=== PATIENT | female | born 1990 | race Caucasian/White ===

== ENCOUNTER 2022-07-24 10:04 | Emergency (ER) | payer MEDICAID, OTHER, SELFPAY ==
[2022-07-24 10:12] VITALS: BP 136/88; PULSE 83; RESP 18; TEMP 36.8; O2SAT 100; BMI 18.7
--- NOTE | 2022-07-24 10:17 | ED_ITS ---
HPI - Wound/Laceration General Chief Complaint: Wound/Laceration Stated Complaint: Finger lac Time Seen by Provider: 07/24/22 10:15 Source: patient, RN notes reviewed and old records reviewed Mode of arrival: ambulatory History of Present Illness HPI narrative: 31-year-old female with no significant past medical history presenting to the ED for wound check to right thumb s/p cutting on oven wheat cleaner 1 week ago. Admits used topical antibiotic ointment a few days after incident, however has been having persistent/worsening pain. Admits to mild expressible drainage this morning. Tetanus out of date. Denies fever, chills, numbness/tingling, injury to other area Onset (ago): week(s) Related Data Previous Rx's Medication Instructions Recorded cephalexin 500 mg capsule 500 mg PO QID 7 days #28 caps 07/24/22 Allergies Allergy/AdvReac Type Severity Reaction Status Date / Time alcohol Allergy Unknown Verified 07/24/22 10:14 Review of Systems Review of Systems: Constitutional: No Fever, No Chills ENT/Mouth: No Ear Pain, No Nasal Congestion, No sore throat, No Rhinorrhea, No Swallowing Difficulty Cardiovascular: No Chest Pain, No SOB Respiratory: No Cough, No Sputum, No Wheezing Musculoskeletal: No joint pain, No Myalgias, + Joint Swelling Skin: + Skin Lesions, No rash Neuro: No Weakness, No Numbness, No Paresthesias Yes all other systems are reviewed and are negative Constitutional: Constitutional: Reports as per [facility] Past Medical History Attestation statement: The following information was validated with the patient. Source: old records reviewed Physical Exam Vital Signs: Vital Signs: Last Vital Signs Temp 98.3 F 07/24/22 10:12 Pulse 83 07/24/22 10:12 Resp 18 07/24/22 10:12 BP 136/88 07/24/22 10:12 Pulse Ox 100 07/24/22 10:12 O2 Del Method Room Air 07/24/22 10:12 BMI result Body Mass Index 18.7 Const: General: cooperative, healthy appearing and no acute distress Orientation/consciousness: patient oriented x3 Limitations: no limitations HEENT: Head: Yes normal to inspection and Yes atraumatic Ears: hearing grossly normal bilaterally General nose exam: Normal external nose present Face and sinus: Yes normal facial exam Eyes: General: appearance normal, both eyes and all related structures EOM: EOMs intact bilaterally Neck: Neck: Yes normal visual inspection and Yes no meningeal signs Resp: Effort & Inspection: normal respiratory effort and no respiratory distress Cardio: Rate: regular rate Peripheral pulses: radial pulses present and ulnar radial pulses present Skin: Other: Healing superficial laceration noted to distal right 1st digit palmar aspect. Mild swelling. No erythema/warmth. No fluctuance/induration or expressible drainage. Full range of motion intact. Neurovascular intact Rashes: no rashes Neuro: General: patient oriented x3, tone normal and no meningeal signs Gait exam (Neuro): Normal gait present Extrem: General: Yes normal to inspection Medical Decision Making Medical Decision Making MDM Narrative: 31-year-old female with no significant past medical history presenting to the ED for wound check to right thumb s/p cutting on oven wheat cleaner 1 week ago. On exam vital signs stable, NAD, nontoxic appearing, physical exam as noted above with appropriately healing laceration to right thumb with mild swelling. No surrounding cellulitis, no fluctuance/induration or expressible drainage. Low suspicion for septic joint/arthritis or underlying abscess/felon Plan: PO Keflex, PCP follow-up Results discussed with patient including worrisome signs and symptoms and strict return precautions, and when to return to the emergency department. They verbalized understanding and feel safe for discharge at this time. Differential Diagnosis Differential Diagnoses: The differential diagnosis associated with the presentation includes As above External Record Review External record reviewed: Inpatient record, Office record, Outpatient record, Prior outpatient labs, Prior outpatient radiology, Primary care record and Outside ED record Tests considered The following testing was considered but not selected: As above Discharge Plan Discharge Clinical Impression: Visit for wound check Patient Disposition: Home, Self-Care Instructions: Finger Laceration (ED) Additional Instructions: Keflex is an oral antibiotic please take as prescribed. The antibiotic was sent to [facility] at [address] [facility] You may apply topical antibiotic cream like bacitracin or Neosporin If area begins to look red, has pus drainage, you have fever return to the ED Kefleks ? peroral'nyy antibiotik, prinimayte yego elvira patelachemiranda. Antibiotik byl arnie felix adresu [address] [facility]. Ivy soria s antibiotikom, comfort gonzalez batsitratsin tom neosporin. Yesli oblast' nachinayet vyglyadet' raffynoraissa quiñones, u vas likhoradka, horaciozvrsuleiman' v otdeleniye neotlozhnrebecca camacho. Prescriptions: New cephalexin 500 mg capsule 500 mg PO QID 7 Days Qty: 28 0RF Referrals: Physician,Unknown J [Primary Care Provider] -
[2022-07-24] MEDS: Diphth,Pertus(ACell),Tet Adult 0.5 ML SYRINGE IM (10:51)
== END 2022-07-24 11:11 | disposition home or self-care (01) ==
PROVIDERS: Emergency Provider Internal Medicine
DX: S61.011A Laceration without foreign body of right thumb without damage to nail, initial encounter (principal); S60.311A Abrasion of right thumb, initial encounter; W26.9XXA Contact with unspecified sharp object(s), initial encounter; Y93.9 Activity, unspecified; Y92.009 Unspecified place in unspecified non-institutional (private) residence as the place of occurrence of the external cause; Y99.9 Unspecified external cause status; Z23 Encounter for immunization
CPT/HCPCS: 90471; 90715; 99283; 99284

== ENCOUNTER 2022-07-29 07:59 | Emergency (ER) | payer MEDICAID, OTHER, SELFPAY ==
--- NOTE | ~2022-07-29 | XR_ITS ---
EXAMINATION: XR FINGER, RIGHT CLINICAL INFORMATION: Evaluate for foreign body COMPARISON: None available. TECHNIQUE: Three views views of the right finger including single view of right hand. FINDINGS: The bones and soft tissues are normal. No fracture. Alignment is anatomic. Joint spaces are maintained. XR/XR finger RT min 2V IMPRESSION: Normal finger radiographs. No foreign bodies identified
[2022-07-29 08:16] VITALS: BP 106/71; PULSE 71; RESP 18; TEMP 36.7; O2SAT 98; BMI 22.3
--- NOTE | 2022-07-29 08:55 | ED_ITS ---
HPI - General Adult General Chief complaint: Wound/Laceration Stated complaint: thumb issues? 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 She was seen here on 07/24 for concern of infection in the same area after cutting her thumb with steel wool the week prior. Patient had tetanus updated and was started on Keflex at that visit which she reports has been taking as prescribed. Patient denies recent drainage but reports visible pocket of pus to the distal tip of her right thumb. Reports is able to flex and extend thumb without difficulty. Denies fevers. MD complaint: right thumb abscess Onset (ago): day(s) Location: upper extremity Radiation: non-radiation Pain Consistency: constant Relieving factors: none Exacerbating factors: movement and other (palpation) Associated symptoms: denies other symptoms Treatments prior to arrival: other (keflex) Related Data Previous Rx's Medication Instructions Recorded cephalexin 500 mg capsule 500 mg PO QID 7 days #28 caps 07/24/22 doxycycline hyclate 100 mg tablet 100 mg PO BID #14 tabs 07/29/22 Allergies Allergy/AdvReac Type Severity Reaction Status Date / Time alcohol Allergy Unknown Verified 07/24/22 10:14 Review of Systems Review of Systems: As per HPI. Yes all other systems are reviewed and are negative Constitutional: Constitutional: Reports as per HPI [facility] Social History Social History Smoked in Last 30 Days: Yes Use of substances other than those prescribed or required for medical reasons: No Advance Directives: No Physical Exam ED Vital Signs: Vital Signs - 24 hr 07/29/22 08:16 Temperature 98.1 F Pulse Rate 71 Respiratory Rate 18 Blood Pressure 106/71 Pulse Oximetry 98 Oxygen Delivery Method Room Air BMI result Body Mass Index 22.3 Vital signs have been reviewed and appear to be correct. Blood pressure normal. Heart rate normal. Respiratory rate normal. Temperature normal. Oxygen saturation normal. Const General: cooperative, healthy appearing and no acute distress Orientation/consciousness: oriented to person, oriented to place, oriented to time and patient oriented x3 Limitations: no limitations HENMT Head: Yes normocephalic and Yes atraumatic Ears: external ears normal General nose exam: Normal external nose present Face and sinus: Yes face symmetric Mouth: oropharynx normal and moist mucous membranes Throat: Yes uvula midline Eyes Pupils: Equal, round and reactive pupils present Neck Neck: Yes normal visual inspection and Yes supple Resp Effort & Inspection: normal respiratory effort and able to speak in complete sentences Auscultation: clear to auscultation bilaterally Cardio Rate: regular rate Rhythm: regular rhythm Heart sounds: S1 normal heart sound present and S2 normal heart sound present GI Palpation (GI): Soft to palpation and nontender Auscultation: normoactive bowel sounds General: Yes no CVA tenderness Back/Spine/Pelvis Back: no CVA tenderness Skin General skin exam: elasticity normal and turgor normal Neuro General: oriented to person, oriented to place, oriented to time, patient oriented x3, moves all extremities, no focal motor deficits and CN's II-XI intact bilaterally Cranial nerves: Yes Equal, round and reactive pupils present Cognition (Neuro): normal cognition Extrem General: Yes full ROM, Yes no pedal edema and Yes no calf tenderness Right upper extremity: Extremity exam: right hand Details: abnormal to inspection Details: other (visible pus pocket with fluctuance volar tip of right thumb), normal capillary refill, neuromotor exam normal, neurosensory exam normal, tenderness Location: of the thumb Location: at the distal phalanx and on the palmar aspect, normal ROM of fingers and swelling Location: of the thumb Location: at the distal phalanx and on the palmar aspect; no unusual warmth Psych Mental Status: mental status grossly normal Affect: normal affect Thought process: Normal thought process present Procedures Abscess I/D Site: hand Side (if applicable): right (thumb) Local Anesthetic: lidocaine 1% Amount of anesthesia used (mL): 1 Technique: incised with blade Amount of fluid expressed (mL): 0 Sent for culture/gram staining?: Yes Irrigation: No Packing used?: none Medical Decision Making Medical Decision Making MDM Narrative: Patient is a 31-year-old female with no past medical history presenting to the ED with pain and question abscess to volar aspect of right thumb. On exam patient is awake, A+Ox3, VS WNL, afebrile, visible pus pocket and fluctuance to volar abscess of distal right thumb without surrounding erythema or calor. Concern for abscess versus retained foreign body. Unlikely cellulitis as no erythema or calor. Will obtain x-ray to assess for possible foreign body. Plan to drain abscess, add doxycycline for additional coverage. 09:44 FINDINGS: The bones and soft tissues are normal. No fracture. Alignment is anatomic. Joint spaces are maintained.? XR/XR finger RT min 2V IMPRESSION: Normal finger radiographs. No foreign bodies identified Incision and drainage as per procedure note. Patient tolerated procedure well. Band-Aid applied following incision. Instructed patient to follow up with PCP, soak some in warm water with Epsom salt several times daily, assess daily for signs of infection and follow up with PCP or return to ED if these occur. Added doxycycline for additional coverage. Wound culture obtained and will follow up with patient if change in antibiotics is indicated. Differential Diagnosis Differential Diagnoses: The differential diagnosis associated with the presentation includes As above. Independent Interpretation I performed an independent interpretation of an: Plain X-Ray Interpretation: I independently reviewed the x-ray and agree with the radiologist's interpretation. Radiology Impression Discussion of test interpretation with radiology: I have reviewed the radiologist's reading. Radiologist Impression: FINDINGS: The bones and soft tissues are normal. No fracture. Alignment is anatomic. Joint spaces are maintained.? XR/XR finger RT min 2V IMPRESSION: Normal finger radiographs. No foreign bodies identified External Record Review External record reviewed: Inpatient record, Office record and Outpatient record Prescription Management I considered prescription management with: Antibiotic (doxycycline) Discharge Plan Discharge Clinical Impression: Abscess Patient Disposition: Home, Self-Care Instructions: Abscess (ED), Abscess Incision and Drainage (DC) Additional Instructions: Derzhite oblast' nakrytoy do tekh por, poka razrez ne zazhivet, i yezhednevno proveryayte ranu na nalichiye priznakov infektsii. Zamochite mae'shoy palets v teploy vode s angliyskoy dulce'sims na 10-15 minut neskol'ko billy v den'. Vernites' v otdeleniye neotlozhnoy pomoshchi, yesli vy ispytyvayete usilivayushcheyesya pokrasneniye, priyank key 100,4 ? F tom vyshe. Prescriptions: New doxycycline hyclate 100 mg tablet 100 mg PO BID Qty: 14 0RF No Action cephalexin 500 mg capsule 500 mg PO QID 7 Days Qty: 28 0RF
[2022-07-29] MEDS: Lidocaine HCl 1 % MPF 5 ML VIAL INFILTRATI (11:04)
== END 2022-07-29 11:14 | disposition home or self-care (01) ==
PROVIDERS: Emergency Provider Internal Medicine
DX: L02.511 Cutaneous abscess of right hand (principal); Z79.899 Other long term (current) drug therapy
CPT/HCPCS: 26010; 73140; 87070; 87077; 87186; 87205; 99284

== ENCOUNTER 2023-10-04 15:57 | Emergency (ER) | payer MEDICAID, OTHER, SELFPAY ==
--- NOTE | ~2023-10-04 | XR_ITS ---
EXAMINATION: XR LUMBOSACRAL SPINE CLINICAL INFORMATION: Low back pain COMPARISON: None available. TECHNIQUE: Three views of the lumbosacral spine. FINDINGS: The vertebral bodies and posterior elements are normal. The disc spaces are preserved and the vertebral alignment is normal. The paraspinal soft tissues are normal. XR/XR lumbar spine 2-3V IMPRESSION: No acute abnormality in the lumbar spine.
[2023-10-04 16:10] VITALS: BP 122/79; PULSE 87; RESP 16; TEMP 36.9; O2SAT 98; BMI 19.3
--- NOTE | 2023-10-04 16:46 | ED.GENADULT ---
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 Patient states she was doing laundry, when she bent over and lifted up a been full of clothes when she heard a slight ?pop? in her back and the severe pain started. States that this happened about 3 hours ago, and that she finds it painful to walk, sit and lay down. Pain is localized to the left lower back. Denies any tingling or electricity sensation, no numbness or pain traveling down her leg or radiating anywhere. Pain is the most painful when bending forward or twisting to the left side. She has not taken anything for pain relief, and is not on any medications or blood thinners. Onset (ago): hour(s) (3) Location: back Radiation: non-radiation Quality: stabbing Pain Consistency: intermittent (With movement, certain positions. no pain when sitting upright) Exacerbating factors: movement Associated symptoms: denies other symptoms Treatments prior to arrival: none Related Data Previous Rx's ?Medication ?Instructions ?Recorded cephalexin 500 mg capsule 500 mg PO QID 7 days #28 caps 07/24/22 doxycycline hyclate 100 mg tablet 100 mg PO BID #14 tabs 07/29/22 cyclobenzaprine 5 mg tablet 5 mg PO TID PRN low back pain 7 10/04/23 days #21 tabs Allergies Allergy/AdvReac Type Severity Reaction Status Date / Time alcohol Allergy Unknown Verified 10/04/23 16:12 Review of Systems Constitutional: Constitutional: Reports no additional constitutional complaints, Denies chills, Denies fever(s) and Denies night sweats Eyes: Eyes: Reports no additional eye complaints, Denies blurry vision, Denies change in vision, Denies diplopia, Denies eye discharge, Denies loss of vision and Denies eye pain ENT: Denies dizziness Cardiovascular: Cardiovascular: Reports no additional cardiovascular complaints, Denies chest pain, Denies lightheadedness, Denies Loss of Consciousness and Denies dyspnea Respiratory: Respiratory: Reports no additional respiratory complaints and Denies dyspnea Gastrointestinal: Gastrointestinal: Reports no additional gastrointestinal complaints, Denies abdominal pain, Denies melena, Denies hematochezia, Denies change in bowel habits and Denies change in stool character Genitourinary: Genitourinary: Denies hematuria, Denies urinary frequency, Denies dysuria, Denies urinary incontinence, Denies urinary hesitancy and Denies urinary urgency Musculoskeletal: Musculoskeletal: Reports no additional musculoskeletal complaints, Reports back pain (left paraspinal muscles ), Denies numbness and Denies tingling Neurologic: Denies dizziness, Denies loss of vision, Denies numbness and Denies tingling Psychiatric: Psychiatric: Reports no additional psychiatric complaints Endocrine: Endocrine: Reports no additional endocrine complaints Hematologic/Lymphatic: Hematologic/Lymphatic: Reports no additional hematologic/lymphatic complaints Allergic/Immunologic: Allergic/Immunologic: Reports no additional allergic/immunologic complaints PMFSH Past Medical History Attestation statement: The following information was validated with the patient. Source: old records reviewed and nursing notes reviewed Social History Social History Advance Directives: No Advance Directives Information Provided: No Physical Exam ED Vital Signs: Vital Signs - 24 hr 10/04/23 16:10 Temperature 98.5 F Pulse Rate 87 Respiratory Rate 16 Blood Pressure 122/79 Pulse Oximetry 98 Oxygen Delivery Method Room Air BMI result Body Mass Index 19.3 Const General: cooperative, alert, awake and acute distress Nutritional Appearance: well nourished Orientation/consciousness: patient oriented x3 Limitations: no limitations HENMT Head: Yes normal to inspection and Yes atraumatic Ears: hearing grossly normal bilaterally and external ears normal General nose exam: Normal external nose present, no nasal discharge noted and no epistaxis Face and sinus: Yes normal facial exam, No abrasion and No laceration Mouth: Normal oral and palatal mucosa present, no drooling and no muffled voice Eyes General: appearance normal, both eyes and all related structures Periorbital: periorbital findings normal Eyelids: Yes eyelids normal Conjunctivae: conjunctivae normal Pupils: Equal, round and reactive pupils present EOM: EOMs intact bilaterally Neck Neck: Yes normal visual inspection, Yes full ROM and Yes no lymphadenopathy Chest Chest palpation & inspection: normal inspection of the chest Resp Effort & Inspection: normal respiratory effort and able to speak in complete sentences Auscultation: clear to auscultation bilaterally Cardio Rate: regular rate Rhythm: regular rhythm Heart sounds: S1 normal heart sound present and S2 normal heart sound present Peripheral pulses: Peripheral pulses 2+ throughout GI Inspection: Yes normal to inspection Back/Spine/Pelvis Other: Pain to left paraspinal muscle, localized tenderness to left paraspinal muscle with palpation, no central vertebral pain, no radiculopathy with movement, no tingling/numbness or pain sensation shooting down the legs. Lumbar flexion and extension is painful, rotation and lateral movement of lumbar spine to the left is painful, much less painful with lumbar rotation and lateral movement to the right side. Neuro General: patient oriented x3 and moves all extremities Cranial nerves: Yes Equal, round and reactive pupils present Cognition (Neuro): normal cognition Gait exam (Neuro): Normal gait present Motor exam (neuro): 5/5 motor strength present throughout (Although painful on left leg with movement ) Sensory Exam: Normal double simultaneous stimulation for sensation Extrem General: Yes normal to inspection, Yes full ROM and Yes capillary refill normal Psych Appearance: grossly normal Mental Status: mental status grossly normal Affect: normal affect Attitude: cooperative Thought process: Normal thought process present Thought content: Normal thought content present Insight: Good insight present (Psych) Medications Administered Discontinued Medications Generic Name Dose Route Start Last Admin Trade Name Shermanq PRN Reason Stop Dose Admin Cyclobenzaprine HCl 5 mg 10/04/23 16:46 10/04/23 17:30 Cyclobenzaprine Hcl 5 Mg Tablet PO 10/04/23 16:47 5 mg ONCE ONE Administration Medical Decision Making Medical Decision Making [facility] Narrative: 32-year-old female presents today with reports of sudden lower back pain after bending over to do laundry. Patient states she was doing laundry, when she bent over and lifted up a basket full of clothes and her back began to hurt. Patient's physical exam was as noted in the physical exam portion of this note. Patient's lumbar x-ray showed no acute process. I explained my physical exam findings as well as all test results to the patient. I answered all questions asked by the patient. I stressed the importance of the patient taking her medication as directed (either prescribed or as the over the counter packaging recommends). I stressed the importance of the patient following up with her primary care provider. I stressed the importance of the patient returning to the emergency department immediately if her symptoms were to worsen or if she were to develop any dizziness, shortness of breath, difficulty breathing, chest pain, blurry vision, loss of vision, nausea, vomiting, abdominal pain, fever, chills, back pain, or any other complaints. Patient verbalized agreement and understanding with this treatment plan and discharge. Differential Diagnosis Differential Diagnoses: The differential diagnosis associated with the presentation includes muscle spasm disc herniation muscle strain lumbar nerve impingement Admission/Observation Consideration of admission/observation: Escalation of care including admission/observation considered Patient would have been admitted to the hospital had her work up had any findings where hospital admission was appropriate and her clinical presentation warranted hospital admission. Lab Data MDM Lab Attestation statement: I reviewed the patient's lab results. My interpretation of these studies and their corresponding values is that they are grossly normal. Labs: Lab Results 10/04/23 Range/Units 17:37 Urine Color Yellow Urine Appearance Clear Urine pH 6.0 (5.0-9.0) Ur Specific [place] 1.025 (1.005-1.025) Urine Protein Trace (Neg-Trace) mg/dL Urine Glucose (UA) Negative (Negative) mg/dL Urine Ketones Trace (Negative) mg/dL Urine Blood Negative (Negative) Urine Nitrite Negative (Negative) Ur Leukocyte Esterase Negative (Negative) Urine RBC 0-2 (0-2) /HPF Urine WBC 0-5 (0-5) /HPF Ur Squamous Epith Cells 6-10 (0-2) /HPF Urine Bacteria 1+ (None Seen) Hyaline Casts 0-2 (0-2) /LPF Urine Test NEGATIVE (NEGATIVE) Independent Interpretation I performed an independent interpretation of an: Plain X-Ray Interpretation: My interpretation is in agreement with the radiologist's impression of this imaging study. EXAMINATION: XR LUMBOSACRAL SPINE CLINICAL INFORMATION: Low back pain COMPARISON: None available. TECHNIQUE: Three views of the lumbosacral spine. FINDINGS: The vertebral bodies and posterior elements are normal. The disc spaces are preserved and the vertebral alignment is normal. The paraspinal soft tissues are normal. XR/XR lumbar spine 2-3V IMPRESSION: No acute abnormality in the lumbar spine. Dictated By: Wing Gracia MD Signed By: Electronically signed by Wing Gracia MD 10/04/23 2702 Radiology Impression Discussion of test interpretation with radiology: I have reviewed the radiologist's reading. Prescription Management I considered prescription management with: Pain Medication (patient prescribed pain medication) Discharge Plan Discharge Clinical Impression: Strain of lumbar region Patient Disposition: Home, Self-Care Instructions: Acute Low Back Pain (ED) Additional Instructions: Follow up with your primary care provider. Return to the emergency department immediately if your symptoms worsen or if you develop any dizziness, shortness of breath, difficulty breathing, chest pain, blurry vision, loss of vision, nausea, vomiting, abdominal pain, fever, chills, back pain, or any other complaints. Prescriptions: New cyclobenzaprine 5 mg tablet 5 mg PO TID PRN (Reason: low back pain) 7 Days Qty: 21 0RF No Action cephalexin 500 mg capsule 500 mg PO QID 7 Days Qty: 28 0RF doxycycline hyclate 100 mg tablet 100 mg PO BID Qty: 14 0RF Referrals: [facility] Family Medicine [Provider Group] (Call to establish and follow up with a primary care provider. If you already have a primary care provider, please follow up with them.) [facility] Primary CareVaishali [Provider Group] [facility] Primary CareEsme [Provider Group] Stand Alone Forms: Work/School Release Print Language: [place]
[2023-10-04] MEDS: Cyclobenzaprine HCl 5 MG TABLET PO (17:30)
[2023-10-04 17:41] LABS: Appearance Urine Clear; Color Urine Yellow; Glucose Urine UA Negative (Negative); Leukocyte Esterase Urine Negative (Negative); Nitrite Urine Negative (Negative); Specific Gravity - Urine 1.025 (1.005-1.025); UPreg QC Valid YES; Urine Blood Negative (Negative); Urine Ketones Trace mg/dL (Negative); Urine Pregnancy NEGATIVE (NEGATIVE); Urine Protein Trace mg/dL (Neg-Trace)
[2023-10-04 17:43] LABS: Bacteria Urine 1+ (None Seen); Hyaline Casts Urine 0-2 /LPF (0-2); RBC Urine 0-2 /HPF (0-2); WBC Urine 0-5 /HPF (0-5)
[2023-10-04 18:15] VITALS: BP 107/64; PULSE 57; RESP 16; TEMP 36.3; O2SAT 100
[2023-10-04 18:55] VITALS: BP 107/64; PULSE 57; RESP 16; TEMP 36.3; O2SAT 100
== END 2023-10-04 18:57 | disposition home or self-care (01) ==
PROVIDERS: Physician Assistant; Emergency Provider Internal Medicine
DX: S39.012A Strain of muscle, fascia and tendon of lower back, initial encounter (principal); X58.XXXA Exposure to other specified factors, initial encounter; Y93.89 Activity, other specified; Y92.89 Other specified places as the place of occurrence of the external cause; Y99.8 Other external cause status
CPT/HCPCS: 72100; 81001; 81025; 99283

== ENCOUNTER 2024-08-18 20:12 | Emergency (ER) | payer OTHER, SELFPAY ==
[2024-08-18 20:26] VITALS: BP 130/76; PULSE 75; RESP 16; TEMP 37; O2SAT 100; BMI 16.5
--- NOTE | 2024-08-18 20:27 | ED.GENADULT ---
HPI - General Adult General Chief complaint: Recheck/Abnormal Lab/Rx Stated complaint: diabetic blood sugar almost 500! Time Seen by Provider: 08/18/24 23:19 History of Present Illness ED Provider: Monalisa PRESTON narrative: The patient is a 33-year-old female who says that a few months ago she noticed increased urine output and was able to get seen at a medical office and had testing that showed she had hyperglycemia. She believes she has diabetes. She has been trying to get a primary care doctor but has not been able to get an appointment until November. She has been to urgent care centers who have only told her she needs to get a primary care doctor. She thinks she has lost about 14 lb over the last 2 months. She acknowledges that she has had increased urine output. No nausea or vomiting. No fever, sweats, chills. Related Data Previous Rx's ?Medication ?Instructions ?Recorded cephalexin 500 mg capsule 500 mg PO QID 7 days #28 caps 07/24/22 doxycycline hyclate 100 mg tablet 100 mg PO BID #14 tabs 07/29/22 cyclobenzaprine 5 mg tablet 5 mg PO TID PRN low back pain 7 10/04/23 days #21 tabs metformin 500 mg tablet 500 mg PO BID 30 days #60 tabs 08/18/24 Allergies Allergy/AdvReac Type Severity Reaction Status Date / Time alcohol Allergy Shortness Verified 08/18/24 20:30 of Breath Review of Systems Review of Systems: Yes all other systems are reviewed and are negative [facility] Social History Social History Smoked in Last 30 Days: Yes Use of substances other than those prescribed or required for medical reasons: No Advance Directives: No Advance Directives Information Provided: No Do you have a plan to hurt others: No Plan Physical Exam ED Vital Signs: Vital Signs - 24 hr 08/18/24 20:26 08/18/24 23:57 Temperature 98.6 F 98.6 F Pulse Rate 75 63 Respiratory Rate 16 16 Blood Pressure 130/76 111/76 Pulse Oximetry 100 99 Oxygen Delivery Method Room Air Room Air BMI result Body Mass Index 16.5 Const Other: The patient is a thin 33-year-old female who was awake and alert and does not appear acutely ill. Orientation/consciousness: patient oriented x3 HENMT Other: The face is symmetrical. Mucous membranes moist. Eyes Other: The patient has some mild strabismus. there is exotropia of the left eye. The eyes were otherwise normal. Pupils are round equal. Conjunctivae are clear. When testing eye movements eye movements are fairly intact. Neck Neck: Yes normal visual inspection and Yes no lymphadenopathy Resp Effort & Inspection: normal respiratory effort Auscultation: clear to auscultation bilaterally Cardio Rate: regular rate Rhythm: regular rhythm Heart sounds: S1 normal heart sound present and S2 normal heart sound present General: Yes no CVA tenderness Back/Spine/Pelvis Back: no CVA tenderness Skin Other: The skin is dry and unremarkable Neuro General: patient oriented x3, gait normal, tone normal, moves all extremities, no focal motor deficits and CN's II-XI intact bilaterally Extrem Other: There is no calf swelling or tenderness. No asymmetry. No peripheral edema. Course Course Course Narrative: 08/18/242026 JOLENE Hallman This is a Rapid Medical Examination (RME) performed by Alexandra Dorado PA-C in triage. Full HPI, ROS, assessment and treatment plan per primary provider in the Main ED. Hx: 33 yo F hx of DM here for elevated glucose readings. admits she was diagnosed w/ DM a few months back. has been attempting to establish care with a PCP however is on a wait list for 6-9 months. Reports elevated blood sugar readings at home between 400-500. 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 She does not have any medication to manage this. she reports sharp needle prick sensations to extremities and abdominal pain. Plan: labs Medications Administered Discontinued Medications Generic Name Dose Route Start Last Admin Trade Name Keith PRN Reason Stop Dose Admin Metformin HCl 500 mg 08/18/24 23:47 08/18/24 23:58 Metformin Hcl 500 Mg Tablet PO 08/18/24 23:48 500 mg ONCE ONE Administration Medical Decision Making Medical Decision Making MDM Narrative: The patient is a 33-year-old female who has a blood sugar 379 consistent with type 2 diabetes. Other labs are unremarkable. No findings to suggest type 1 diabetes. She apparently has had elevated blood sugars for several months but has not been on any medications. She had some paperwork from another hospital indicating a hemoglobin A1c of 11. she does not appear ill in any way. She will be started on metformin. She says she has had trouble finding a PCP. She is provided additional doctor's offices to try for a possible PCP. She was also advised to call the number on the back of her insurance card to see if that can help her find a PCP who takes her insurance. Lab Data 08/18/24 20:37 08/18/24 20:37 Labs: Lab Results 08/18/24 Range/Units 20:37 WBC 6.4 (4.8-10.8) X10*3/uL RBC 4.38 (4.20-5.50) X10*6/uL Hgb 13.8 (12.0-16.0) g/dl Hct 38.7 (37.0-47.0) % MCV 88.4 (80.0-98.0) fL MCH 31.5 (27.0-33.0) pg MCHC 35.7 H (31.0-35.0) g/dl RDW 11.8 (11.0-16.0) % Plt Count 197 (160-400) X10*3/uL MPV 10.2 (9.4-12.3) fL Immature Gran % (Auto) 0.2 (0.0-0.4) % Neut % (Auto) 52.6 (45-73) % Lymph % (Auto) 36.3 (20-40) % [place] % (Auto) 8.3 (2-11) % Eos % (Auto) 2.0 (0-4) % Baso % (Auto) 0.6 (0-2) % Lymph # (Auto) 2.3 (1.2-4.9) X10*3/uL [place] # (Auto) 0.5 (0.1-1.2) X10*3/uL Eos # (Auto) 0.1 (0.0-0.4) X10*3/uL Baso # (Auto) 0.0 (0.0-0.2) X10*3/uL Abs Immat Gran (auto) 0.01 (0.00-0.03) X10*3/uL Absolute Neuts (auto) 3.4 (2.0-8.3) x10*3/uL Absolute Nucleated RBC 0.000 (0.0-0.012) X10*3/uL Nucleated RBC % (auto) 0.0 (0.0-0.2) /100WBC Sodium 137 (135-145) mmol/L Potassium 3.7 (3.3-5.1) mmol/L Chloride 104 (96-108) mmol/L Carbon Dioxide 23 (22-29) mmol/L Anion Gap 14 (12-20) BUN 16 (9-16) mg/dL Creatinine 0.94 (0.5-1.4) mg/dL Estim Creat Clear Calc 59.8 Estimated GFR > 60 Random Glucose 379 H* (60-115) mg/dL Calcium 9.1 (8.4-10.2) mg/dL Magnesium 1.7 (1.6-2.6) mg/dL Total Bilirubin 0.3 (0.0-1.0) mg/dL AST 15 (5-31) U/L ALT 19 (0-31) U/L Alkaline Phosphatase 47 (39-117) U/L Total Protein 6.8 (6.5-8.0) g/dL Albumin 4.1 (3.5-5.0) g/dL Lipase 17 (8-78) U/L Beta-Hydroxybutyrate 0.10 (0.02-0.27) mmol/L Discharge Plan Discharge Clinical Impression: Hyperglycemia, Type 2 diabetes mellitus Patient Disposition: Home, Self-Care Additional Instructions: I have sent a prescription for metformin to the [facility] pharmacy on [address] [facility] in [place]. This has been written for you to take the medication 2 times a day but I would begin by taking 1 tablet daily for a week to see how well you tolerate it. If you are able to you should check your blood sugar a few days after starting this medication taking 1 tablet daily. If your blood sugars are still over 150 please take the medication 2 times a day. Additionally please call your insurance company (the phone number on the back of the car) to see if they can help you get a new primary care doctor. Additionally I have provided contact information for some local primary care providers which you can try to contact for a new the patient appointment. Return to the emergency room if you feel significantly worse. Prescriptions: New metformin 500 mg tablet 500 mg PO BID 30 Days Qty: 60 0RF No Action cephalexin 500 mg capsule 500 mg PO QID 7 Days Qty: 28 0RF doxycycline hyclate 100 mg tablet 100 mg PO BID Qty: 14 0RF cyclobenzaprine 5 mg tablet 5 mg PO TID PRN (Reason: low back pain) 7 Days Qty: 21 0RF Referrals: [facility] [Provider Group] [facility] [place] Primary Care, Vaishali [Provider Group, Internal Medicine] [facility] [place] Primary Care, Esme [Provider Group, Internal Medicine] [facility] [place] Primary Care, [facility] [Provider Group, Primary Care] Kirti Duque MD [Physician, Internal Medicine] Name,MD Tobias [Primary Care Provider, Internal Medicine] Interventions: ED Discharge Assessment Last Done: 08/18/24 23:57 Discharge Date/Time: 08/19/24 00:02 Print Language: Tajik
[2024-08-18 20:46] LABS: MANUAL DIFF FLAG NO
[2024-08-18 20:47] LABS: Basophils Percent Auto 0.6 % (0-2); Eosinophils Absolute Auto 0.1 X10*3/uL (0.0-0.4); Hematocrit 38.7 % (37.0-47.0); Hemoglobin 13.8 g/dl (12.0-16.0); Imm Gran Abs Auto 0.01 X10*3/uL (0.00-0.03); Imm Gran Pct Auto 0.2 % (0.0-0.4); Lymphocytes Absolute Auto 2.3 X10*3/uL (1.2-4.9); Lymphocytes Percent Auto 36.3 % (20-40); Mean Corpuscular HGB Conc 35.7 g/dl (31.0-35.0); Mean Corpuscular Hemoglobin 31.5 pg (27.0-33.0); Mean Corpuscular Volume 88.4 fL (80.0-98.0); Mean Platelet Volume 10.2 fL (9.4-12.3); Monocytes Absolute Auto 0.5 X10*3/uL (0.1-1.2); Monocytes Percent Auto 8.3 % (2-11); Neutrophils Absolute Auto 3.4 x10*3/uL (2.0-8.3); Neutrophils Percent Auto 52.6 % (45-73); Platelet Count 197 X10*3/uL (160-400); Red Blood Count 4.38 X10*6/uL (4.20-5.50); Red Cell Distribution Width 11.8 % (11.0-16.0); White Blood Count 6.4 X10*3/uL (4.8-10.8)
[2024-08-18 21:28] LABS: Alanine Aminotransferase 19 U/L (0-31); Albumin Level 4.1 g/dL (3.5-5.0); Alkaline Phosphatase 47 U/L (39-117); Anion Gap 14 (12-20); Aspartate Amino Transferase 15 U/L (5-31); Bilirubin Total 0.3 mg/dL (0.0-1.0); Blood Urea Nitrogen 16 mg/dL (9-16); Calcium 9.1 mg/dL (8.4-10.2); Carbon Dioxide 23 mmol/L (22-29); Chloride 104 mmol/L (96-108); Creatinine Clr Calc Pharmacy 59.8; Estimated Glomerular Filt Rate > 60; Glucose Random 379 mg/dL (60-115); Lipase 17 U/L (8-78); Magnesium 1.7 mg/dL (1.6-2.6); Potassium 3.7 mmol/L (3.3-5.1); Sodium 137 mmol/L (135-145); Total Protein 6.8 g/dL (6.5-8.0)
[2024-08-18 23:57] VITALS: BP 111/76; PULSE 63; RESP 16; TEMP 37; O2SAT 99
[2024-08-18] MEDS: metFORMIN HCl 500 MG TABLET PO (23:58)
== END 2024-08-19 00:02 | disposition home or self-care (01) ==
PROVIDERS: Physician Assistant Medical; Emergency Provider Emergency Medicine; PCP Internal Medicine Geriatric Medicine
DX: E11.65 Type 2 diabetes mellitus with hyperglycemia (principal); R35.0 Frequency of micturition
CPT/HCPCS: 36415; 80053; 82010; 83690; 83735; 85025; 99283; 99284

== ENCOUNTER 2024-11-11 11:25 | Outpatient (REF) | payer OTHER, SELFPAY ==
[2024-11-11 13:32] LABS: Hemoglobin A1C 438.4118 umol/L; Total Hemoglobin (HGBA1C) 3817.9714 umol/L
[2024-11-11 13:58] LABS: Thyroid Stimulating Hormone 1.51 uIU/mL (0.32-4.0)
[2024-11-11 13:59] LABS: Microalbum/Creatinine Ratio Ur 60.3 ug/mg cr (<30)
--- OUTSIDE RECORDS SUMMARY | 2024-11-11 14:08 | XMS_ITS | Clinical Summary ---
Author Organization [facility] Address [address] [place] [address] Care Team Providers Care Moth Proofer Name Role Phone Unavailable Primary Care Provider Unavailabl e Source Comments PLEASE NOTE, if this patient is a minor, it may be UNLAWFUL to discuss sensitive information that is contained in these records (such as FAMILY PLANNING, MENTAL HEALTH or SUBSTANCE ABUSE) with the minor patient's parent or other person without the patient's specific authorization.[facility] Allergies Active Allergy Reactions Criticality Noted Date Comments Red Wine Extract 10/31/2024 Medications metFORMIN (GLUCOPHAGE) 1,000 mg tabletIndication s:Diabetes mellitus due to underlying condition with hyperglycemia, 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 60 Tablet 2 11/05/2024 Active Encounters Date Type Department Care Team Description 10/31/2024 5:00 PM EDT Office Visit [address] [address] Child, SURENDRA Curran from Last 3 Months Social History Tobacco Use Types Packs/Day Years Used Date Smoking Tobacco: Never Passive Smoke Exposure: Never Smokeless Tobacco: Never Alcohol Use Standard Drinks/Week Comments Never 0 (1 standard drink = 0.6 oz pur e alcohol) Social Connections Answer Date Recorded Social Connections and Isolation 0 05/22/2023 Financial Resource Strain Answer Date R ecorded Financial Resource Strain 0 2023 Stress Answer Date Recorded Stress 0 05/22/2023 Physical Activity Answer Date Recorded Physical Activity 0 05/22/2023 Food Insecurity Answer Date Recorded Food 0 05/22/2023 Transportation Needs Answer Date Record ed Transportation 0 05/22/2023 Housing Stability Answer Date Recorded Housing 0 05/22/2023 Safety and Environment Answer Date Jayson rded Safety 0 05/22/2023 Utilities Answer Date Recorded Utilities 0 05/22/2023 Employment Answer Date Recorded Employment 0 05/22/2023 Comments Unknown Sex and Gender Information Value Date Recorded Sex Assigned at Female 11/11/2024 10:14 AM PDT Legal Sex Female 12:23 PM PDT Gender Identity Female 11/11/2024 10:14 AM PDT Sexual Orientation Straight 11/11/2024 10 :14 AM PDT Last Filed Vital Signs Vital Sign Reading Time Taken Comments Blood Pressure 127/86 10/31/2024 4:20 PM EDT Pulse 69 10/31/2024 4:20 PM EDT Temperature 37.2 C (98.9 F) 10/31/2024 4:20 PM EDT Respiratory Rate 18 10/31/2024 4:20 PM EDT Oxygen Saturation - - Inhaled Oxygen Concentration - - Weight 44.9 kg (99 lb) 10/31/2024 4:20 PM EDT Height 164 cm (5' 4.57 ) 10/31/2024 4:20 PM EDT Body Mass Index 16.7 10/31/2024 4:20 PM EDT Plan of Treatment Health Maintenance Due Date Last Done Comments Anxiety Screening 1990 Dental Examination 1990 Diabetes Foot Exam 1990 HPV Screening 1990 Pap + HPV 1990 Retinopathy Screening 11/11/2003 Relationship Safety Screening/Counseling 2005 Imm-DTaP/Tdap/Td (1 - Tdap) 2009 Imm-Hepatitis B (1 of 3 - 19+ 3-dose series) 0 Imm-Pneumococcal (1 of 2 - PCV) 2009 Cervical Cancer Screening 11/11/2011 Pap Smear 11/11/2011 Imm-HPV (1 - 3-dose SCDM series) 2017 Alcohol and Drug Screen 02/21/2024 Depression Annual Screen 02/21/2024 Cut-QQIYW-11 (1 - season) 2024 Imm-Influenza (#1) 2024 Hemoglobin A1c 01/31/2025 11/01/2024 Hypertension Screening (#1) 10/31/2025 Tobacco Screening 10/31/2025 10/31/2024 Serum Creatinine 11/01/2025 11/01/2024 Urine Albumin Creatinine Ratio Screening 11/01/2025 11/01/2024 Lipid Screening 11/01/2029 11/01/2024 HIV Screening Completed 11/01/2024 Hepatitis C Screening Completed 11/01/2024 Cervical Ablation/Cold-Knife Conization Discontinued Cervical Cryotherapy Discontinued Colposcopy Discontinued Endometrial Biopsy Discontinued Excision/Leep Discontinued HPV Genotyping Discontinued Vaginal Pap Discontinued Vulvoscopy Discontinued Procedures Procedure Name Priority Date/Time Associated Diagnosis Comments DIABETES TYPE 1 AUTOANTIBODY PANEL Routine 11/01/2024 1:14 PM EDT Diabetes mellitus due to underlying condition with hyperglycemia, 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 ([facility]) ASSAY OF C-PEPTIDE Routine 11/01/2024 1: 14 PM EDT Diabetes mellitus due to underlying condition with hyperglycemia, unspecified whether senior care insulin use ([facility]) GLUCOSE FASTING Routine 11/01/2024 1:14 PM EDT Diabetes mellitus due to underlying condition with hyperglycemia, unspecified whether senior care insulin use ([facility]) IRON PANEL W TOTAL IRON BINDING CAPACITY Routine 11/01/2024 1:14 PM EDT Diabetes mellitus due to underlying condition with hyperglycemia, 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 ([facility]) ACUTE HEPATITIS PANEL W/RFLX Routine 11/01/2024 1:14 PM EDT Diabetes mellitus due to underlying condition with hyperglycemia, 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 ([facility]) HEMOGLOBIN GLYCOSYLATED A1C Routine 11/01/2024 1:14 PM EDT Diabetes mellitus due to underlying condition with hyperglycemia, unspecified whether senior care insulin use ([facility]) LIPID PANEL Routine 11/01/2024 1:14 PM EDT Diabetes mellitus due to underlying condition with hyperglycemia, unspecified whether senior care insulin use ([facility]) MICROALBUMIN/CREATININ E RATIO, URINE, RANDOM Routine 11/01/2024 1:14 PM EDT Diabetes mellitus due to underlying condition with hyperglycemia, 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 ([facility]) C TRACHOMATIS/N GONORRHOEAE RNA,TMA Routine 11/01/2024 1:14 PM EDT Diabetes mellitus due to underlying condition with hyperglycemia, unspecified whether senior care insulin use ([facility]) RPR (MONITOR) W/REFL TITER Routine 11/01/2024 1:14 PM EDT Diabetes mellitus due to underlying condition with hyperglycemia, 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 ([facility]) HIV 1/2 AG & AB W/RFLX (4TH GEN) Routine 11/01/2024 1:14 PM EDT Diabetes mellitus due to underlying condition with hyperglycemia, 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 ([facility]) TSH W/RFLX FREE T4 Routine 11/01/2024 1: 14 PM EDT Diabetes mellitus due to underlying condition with hyperglycemia, unspecified whether senior care insulin use ([facility]) BLOOD COUNT COMPLETE AUTOMATED Routine 11/01/2024 1:14 PM EDT Diabetes mellitus due to underlying condition with hyperglycemia, unspecified whether senior care insulin use ([facility]) COMPREHENSIVE METABOLIC PANEL Routine 11/01/2024 1:14 PM EDT Diabetes mellitus due to underlying condition with hyperglycemia, 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 ([facility]) from Last 3 Months Results * (ABNORMAL) DIABETES TYPE 1 AUTOANTIBODY PANEL Routine (11/01/2024 1:14 PM EDT) GLUTAMIC ACID DECARBOXYLASE 65 AB >250(H) <5 IU/mL 11/09/2024 5:47 AM EDT [facility] INSULIN AUTOANTIBODY <0.4 <0.4 U/mL 11/09/2024 5:47 AM EDT [facility] ZINC TRANSPORTER 8 (ZNT8) ANTIBODY <10 <15 U/mL 11/09/2024 5:47 AM EDT [facility] IA-2 ANTIBODY <5.4 <5.4 U/mL 11/09/2024 5:47 AM EDT [facility] 11/01/2024 1:14 PM EDT 11/02/2024 2:10 AM EDT [facility] - 11/09/2024 5:50 AM EDT FASTING:YES . This test was performed using the GAD65 JENS method which is standardized against the International reference preparation 97/550. FASTING:YES FASTING:YES . Clinician Resources: . Test Guidance Autoantibodies and Type 1 Diabetes (T1D) For additional information, please refer to https://www.Doorman/healthcare-professionals/cl inical-educationcenter/faq/jsq176 (This link is being provided for information/educational purposes only.) . Medical Guidelines and References 2022 [place] Diabetes Association Screening Recommendations (1) 2.5 Screening for presymptomatic type 1 diabetes may be done by detection of autoantibodies to insulin, glutamic acid decarboxylase (FAHEEM), islet antigen 2, or zinc transporter 8. B . 2.6 Multiple confirmed islet autoantibodies is a risk factor for clinical diabetes. Testing for dysglycemia may be used to further forecast near-term risk. When multiple islet autoantibodies are identified, referral to a specialized center for further evaluation and/or consideration of a clinical trial or approved therapy to potentially delay development of clinical diabetes should be considered. B . Patient Resources [place] Diabetes Association: Understanding Type 1 Diabetes https://diabetes.org/about-diabetes/type-1 [place] Diabetes Association: Your Journey With Type 1 Diabetes https://diabetes.org/knexfk-rwrj-qcmyskfx/type-1 JDRF: T1D Education & Awareness https://www.jdrf.org/o5b-egmbvkfpd/b9ctsrkd/ TrialNet: Type 1 Diabetes Research Network https://www.trialnet.org/ . 1. Cris Guzmán, Pam Lee, Alethea Mars, Aura Erazo, Morena Montoya, Gasper George, Antonio Macias, Ada Griffin, Claudette Martin, George Ozuna, Mark Mitchell, Mello Zheng, Jabier Tong, Zaida Arriaza, Janette Rabago, Karen Allison, Richard Bellamy, Barbara العلي, Wing Rangel, Wing Castro, [place] Diabetes Association; Addendum. 2. Classification and Diagnosis of Diabetes: Standards of Care in Diabetes-2022. Diabetes Care 2022;46(Suppl. 1):S19-S40. Diabetes Care 21 October 2022; 46 9): 1715. [email or web address] FASTING:YES . This test was performed using the GAD65 JENS method which is standardized against the International reference preparation 97/550. . This test was performed using the IA-2 Antibody JENS method which is standardized against the WHO Reference Reagent 97/550. The reference range reported was established specifically for this test method. . Clinician Resources: . Test Guidance Autoantibodies and Type 1 Diabetes (T1D) For additional information, please refer to https://www.[employer]/healthcare-professionals/cl inical-educationcenter/faq/mle613 (This link is being provided for information/educational purposes only.) . Medical Guidelines and References 2022 [place] Diabetes Association Screening Recommendations (1) 2.5 Screening for presymptomatic type 1 diabetes may be done by detection of autoantibodies to insulin, glutamic acid decarboxylase (FAHEEM), islet antigen 2, or zinc transporter 8. B . 2.6 Multiple confirmed islet autoantibodies is a risk factor for clinical diabetes. Testing for dysglycemia may be used to further forecast near-term risk. When multiple islet autoantibodies are identified, referral to a specialized center for further evaluation and/or consideration of a clinical trial or approved therapy to potentially delay development of clinical diabetes should be considered. B . Patient Resources [place] Diabetes Association: Understanding Type 1 Diabetes https://diabetes.org/about-diabetes/type-1 [place] Diabetes Association: Your Journey With Type 1 Diabetes https://diabetes.org/klpprd-fpbx-fupbzidk/type-1 JDRF: T1D Education & Awareness https://www.jdrf.org/r3g-hkridclnl/v7twqzxe/ TrialNet: Type 1 Diabetes Research Network https://www.trialnet.org/ . 1. Cris Guzmán, Pam Lee, Alethea Mars, Aura Erazo, Morena Montoya, Gasper George, Antonio Macias, Ada Griffin, Claudette Martin, George Ozuna, Mark Mitchell, Mello Zheng, Jabier Tong, Zaida Arriaza, Janette Rabago, Karen Allison, Richard Bellamy, Barbara العلي, Wing Rangel, Wing Castro, [place] Diabetes Association; Addendum. 2. Classification and Diagnosis of Diabetes: Standards of Care in Diabetes-2022. Diabetes Care 2022;46(Suppl. 1):S19-S40. Diabetes Care 21 October 2022; 46 (9): 1715. [email or web address] Magdy Riley PA-C LAB - BLOOD DRAW Final Result [facility] [employer] [address] [address] [place] [address] [facility] [employer]/[facility] [address] [place] [address] * HIV 1/2 AG & AB W/RFLX (4TH GEN) Routine (11/01/2024 1:14 PM EDT) [facility] Signature HIV Screen Final HIV NEGATIVE 11/02/2024 6:51 AM EDT [facility] [employer] [facility] HIV AG/AB, 4TH GEN NON-REACTIVE NON-REACT MARY 11/02/2024 6:51 AM EDT [facility] [employer] [facility] Blood Blood / Unknown 11/01/2024 1 :14 PM EDT 11/02/2024 4:36 AM EDT Narrative [employer] [facility] - 11/02/2024 6:57 AM EDT FASTING:YES HIV-1 antigen and HIV-1/HIV-2 antibodies were not detected. There is no laboratory evidence of HIV infection. Magdy Riley JOLENE-C LAB - BLOOD DRAW Final Result Performing Organization Address [facility]/ZIP Co de Phone Number [facility] [employer] [address] [address], [facility] [employer] [address] [address] * CHLAMYDIA/NEISSERIA GONORRHOEAE RNA, TMA, UROGENITAL Urine Urine Routine (11/01/2024 1:14 PM EDT) CHLAMYDIA TRACHOMATIS RNA, TMA NOT DETECTED NOT DETECTED 11/02/2024 5:43 PM EDT [facility] [employer] [facility] NEISSERIA GONORRHOEAE RNA, TMA NOT DETECTED NOT DETECTED 11/02/2024 5:43 PM EDT [employer] [facility] Urine Urine specimen / Unknown 11/01/2024 1:14 PM EDT 11/02/2024 9:29 AM EDT Narrative [employer] [facility] - 11/02/2024 5:46 PM EDT FASTING:YES The analytical performance characteristics of this assay, when used to test SurePath(TM) specimens have been determined by [facility]. The modifications have not been cleared or approved by the FDA. This assay has been validated pursuant to the CLIA regulations and is used for clinical purposes. . For additional information, please refer to https://education.Doorman/faq/WXS377 (This link is being provided for information/ educational purposes only.) . Magdy Riley ANTONIETTAC LAB BODY FLUIDS AND STOOLS AM BULATORY Final Result Performing Organization Address [facility]/ZIP Co de Phone Number [facility] [employer] [address] [address], [facility] [employer] [address] [address] * (ABNORMAL) GLUCOSE FASTING Routine (11/01/2024 1:14 PM EDT) GLUCOSE, FASTING (P) 365(H) 65 - 99 mg/dL 11/02/2024 4:16 AM EDT [employer] [facility] 11/01/2024 1:14 PM EDT 11/02/2024 2:31 AM EDT Narrative [employer] [facility] - 11/02/2024 4:22 AM EDT FASTING:YES . Fasting reference interval . For someone without known diabetes, a glucose value >125 mg/dL indicates that they may have diabetes and this should be confirmed with a follow-up test. . Magdy Riley PA-C LAB - BLOOD DRAW Final Result Performing Organization Address [facility] Co de Phone Number [facility] [employer] [address] [address], [employer] [address] [address] * TSH W/RFLX FREE T4 Routine (11/01/2024 1:14 PM EDT) TSH W/REFLEX TO FT4 3.61 mIU/L 11/02/2024 6:43 AM EDT [employer] [facility] Blood Blood / Unknown 11/01/2024 1 :14 PM EDT 11/02/2024 4:35 AM EDT Narrative [employer] [facility] - 11/02/2024 6:57 AM EDT FASTING:YES Reference Range . > or = 20 Years 0.40-4.50 . Ranges First trimester 0.26-2.66 Second trimester 0.55-2.73 Third trimester 0.43-2.91 Magdy Riley PA-C LAB - BLOOD DRAW Final Result Performing Organization Address [facility] de Phone Number [facility] [employer] [address] [address], [employer] [address] [address] * ACUTE HEPATITIS PANEL W/RFLX Routine (11/01/2024 1:14 PM EDT) HEPATITIS A IGM ANTIBODY NON-REACT MARY NON-REACT MARY 11/02/2024 6:52 AM EDT [employer] [facility] HEPATITIS B SURFACE ANTIGEN NON-REACT MARY NON-REACT MARY 11/02/2024 6:51 AM EDT [employer] [facility] HEPATITIS B CORE IGM ANTIBODY NON-REACT MARY NON-REACT MARY 11/02/2024 6:52 AM EDT [employer] [facility] HEPATITIS C ANTIBODY NON-REACT MARY NON-REACT MARY 11/02/2024 6:52 AM EDT [employer] [facility] Blood Blood / Unknown 11/01/2024 1 :14 PM EDT 11/02/2024 4:35 AM EDT Narrative [employer] [facility] - 11/02/2024 6:57 AM EDT FASTING:YES . HCV antibody was non-reactive. There is no laboratory evidence of HCV infection. . In most cases, no further action is required. However, if recent HCV exposure is suspected, a test for HCV RNA (test code 78068) is suggested. . For additional information please refer to http://[employer].Doorman/faq/IKI74e9 (This link is being provided for informational/ educational purposes only.) . . For additional information, please refer to http://[employer].Doorman/faq/MKD283 (This link is being provided for informational/ educational purposes only.) . Magdy [facility] JOLENE-C LAB - BLOOD DRAW Final Result Performing Organization Address City/[facility]/ZIP Co de Phone Number [employer] [address] [address], [employer] [address] [address] * RPR (MONITOR) W/REFL TITER Routine (11/01/2024 1:14 PM EDT) RPR (MONITOR) W/REFL TITER NON-REACT MARY NON-REACT MARY 11/05/2024 10:53 AM EDT [employer] [facility] Blood Blood / Unknown 11/01/2024 1 :14 PM EDT 11/02/2024 2:10 AM EDT [employer] [facility] - 11/05/2024 10:57 AM EDT FASTING:YES Magdy [facility]-C LAB - BLOOD DRAW Final Result Performing Organization Address [facility]/ZIP Co de Phone Number [employer] [address] [address], [employer] [address] [address] * MICROALBUMIN/CREATININE RATIO, URINE, RANDOM Urine Routine (11/01/2024 1:14 PM EDT) CREATININE, RANDOM URINE 108 20 - 275 mg/dL 11/02/2024 6:26 PM EDT [employer] [facility] MICROALBUMIN 2.8 mg/dL 11/02/2024 6:26 PM EDT [employer] [facility] MICROALBUMIN/CRE ATININE RATIO, RANDOM URINE 26 <30 mg/g creat 11/02/2024 6:26 PM EDT [employer] [facility] Urine Urine specimen / Unknown 11/01/2024 1:14 PM EDT 11/02/2024 1:51 AM EDT [employer] [facility] - 11/02/2024 6:45 PM EDT FASTING:YES Reference Range Not established . The ADA defines abnormalities in albumin excretion as follows: . Albuminuria Category Result (mg/g creatinine) . Normal to Mildly increased <30 Moderately increased 30-299 Severely increased > OR = 300 . The ADA recommends that at least two of three specimens collected within a 3-6 month period be abnormal before considering a patient to be within a diagnostic category. us Magdy Riley PA-C LAB URINE AMBULATORY Final Re sult [facility] [employer] [address] [address], [employer] [address] [address] * IRON PANEL W TOTAL IRON BINDING CAPACITY Routine (11/01/2024 1:14 PM EDT) Pathologist [facility] IRON, TOTAL 128 40 - 190 mcg/dL 11/02/2024 9:11 AM EDT [employer] [facility] IRON BINDING CAPACITY 392 250 - 450 mcg/dL (calc) 11/02/2024 9:11 AM EDT [employer] [facility] % SATURATION 33 16 - 45 % (calc) 11/02/2024 9:11 AM EDT [employer] [facility] Blood Blood / Unknown 11/01/2024 1 :14 PM EDT 11/02/2024 2:17 AM EDT [employer] [facility] - 11/02/2024 9:15 AM EDT FASTING:YES us Magdy Riley PA-C LAB - BLOOD DRAW Final Result [employer] [address] [address], [employer] [facility] [address] [place] [address] * (ABNORMAL) BLOOD COUNT COMPLETE AUTOMATED Routine (11/01/2024 1:14 PM EDT) Pathologist [facility] WHITE BLOOD CELL COUNT 5.9 3.8 - 10.8 Thousand/ uL 11/02/2024 3:08 AM EDT [employer] [facility] RED BLOOD CELL COUNT 4.92 3.80 - 5.10 Million/u L 11/02/2024 3:08 AM EDT [employer] [facility] HEMOGLOBIN 15.9(H) 11.7 - 15.5 g/dL 11/02/2024 3:08 AM EDT [employer] [facility] HEMATOCRIT 47.4(H) 35.0 - 45.0 % 11/02/2024 3:08 AM EDT [employer] [facility] MCV 96.3 80.0 - 100.0 fL 11/02/2024 3:08 AM EDT [email or web address] MCH 32.3 27.0 - 33.0 pg 11/02/2024 3:08 AM EDT [email or web address] MCHC 33.5 32.0 - 36.0 g/dL 11/02/2024 3:08 AM EDT [employer] [facility] RDW 12.6 11.0 - 15.0 % 11/02/2024 3:08 AM [email or web address] [facility] PLATELET COUNT 233 140 - 400 Thousand/ uL 11/02/2024 3:08 AM EDT [employer] [facility] MPV 10.9 7.5 - 12.5 fL 11/02/2024 3:08 AM [employer] Blood Blood / Unknown 11/01/2024 1 :14 PM EDT 11/02/2024 2:57 AM EDT [employer] [facility] - 11/02/2024 3:08 AM EDT FASTING:YES For adults, a slight decrease in the calculated MCHC value (in the range of 30 to 32 g/dL) is most likely not clinically significant; however, it should be interpreted with caution in correlation with other red cell parameters and the patient's clinical condition. us Magdy Riley PA-C LAB - BLOOD DRAW Final Result Performing Organization Address [facility] Co de Phone Number [employer] [address] [place] [address], [employer] [address] [address] * ASSAY OF C-PEPTIDE Routine (11/01/2024 1:14 PM EDT) C-PEPTIDE 0.89 0.80 - 3.85 ng/mL 11/02/2024 6:35 AM EDT [email or web address] 11/01/2024 1:14 PM EDT 11/02/2024 4:35 AM EDT Narrative [employer] [facility] - 11/02/2024 6:57 AM EDT FASTING:YES Magdy Riley PA-C LAB - BLOOD DRAW Final Result Performing Organization Address [facility] de Phone Number [employer] [address] [place] [address], [employer] [address] [place] [phone] * (ABNORMAL) HEMOGLOBIN GLYCOSYLATED A1C Routine (11/01/2024 1:14 PM EDT) HEMOGLOBIN A1C 12.3(H) <5.7 % 11/02/2024 6:09 AM EDT [email or web address] Blood Blood / Unknown 11/01/2024 1 :14 PM EDT 11/02/2024 2:57 AM EDT Narrative [facility] - 11/02/2024 6:17 AM EDT FASTING:YES For someone without known diabetes, a hemoglobin A1c value of 6.5% or greater indicates that they may have diabetes and this should be confirmed with a follow-up test. . For someone with known diabetes, a value <7% indicates that their diabetes is well controlled and a value greater than or equal to 7% indicates suboptimal control. A1c targets should be individualized based on duration of diabetes, age, comorbid conditions, and other considerations. . Currently, no consensus exists regarding use of hemoglobin A1c for diagnosis of diabetes for children. . us Magdy Riley PA-C LAB - BLOOD DRAW Final Result [employer] [address] [address], [employer] [facility] [address] [place] [address] * (ABNORMAL) LIPID PANEL Routine (11/01/2024 1:14 PM EDT) CHOLESTEROL, TOTAL 272(H) <200 mg/dL 11/02/2024 9:11 AM EDT [employer] [facility] HDL CHOLESTEROL 100 > OR = 50 mg/dL 11/02/2024 9:11 AM EDT [employer] [facility] TRIGLYCERIDES 157(H) <150 mg/dL 11/02/2024 9:11 AM EDT [employer] [facility] LDL-CHOLESTEROL 143(H) mg/dL (calc) 11/02/2024 9:11 AM EDT [employer] [facility] CHOL/HDLC RATIO 2.7 <5.0 (calc) 11/02/2024 9:11 AM EDT [employer] [employer] [facility] NON-HDL CHOLESTEROL 172(H) <130 mg/dL (calc) 11/02/2024 9:11 AM EDT [employer] [facility] Blood Blood / Unknown 11/01/2024 1 :14 PM EDT 11/02/2024 2:17 AM EDT Narrative [employer] [facility] - 11/02/2024 9:15 AM EDT FASTING:YES Reference range: <100 . Desirable range <100 mg/dL for primary prevention; <70 mg/dL for patients with CHD or diabetic patients with > or = 2 CHD risk factors. . LDL-C is now calculated using the Negra calculation, which is a validated novel method providing better accuracy than the Friedewald equation in the estimation of LDL-C. Tye VALENCIA et al. URIEL. 2013;310(19): 1452-8723 (http://education.Bellmetric.[employer]/faq/ITS240) For patients with diabetes plus 1 major ASCVD risk factor, treating to a non-HDL-C goal of <100 mg/dL (LDL-C of <70 mg/dL) is considered a therapeutic option. us Magdy Riley PA-C LAB - BLOOD DRAW Final Result TIME PLUS Q [address] [address], [employer] [facility] [address] [place] [address] * (ABNORMAL) COMPREHENSIVE METABOLIC PANEL Routine (11/01/2024 1:14 PM EDT) GLUCOSE 363(H) 65 - 99 mg/dL 11/02/2024 9:11 AM [employer] [facility] UREA NITROGEN (BUN) 18 7 - 25 mg/dL 11/02/2024 9:11 AM [employer] [facility] CREATININE (blood) 0.94 0.50 - 0.97 mg/dL 11/02/2024 9:11 AM [employer] [facility] EGFR 82 > OR = 60 mL/min/1. 73m2 11/02/2024 9:11 AM [employer] [facility] BUN/CREATININE RATIO SEE NOTE: 6 - 22 (calc) 11/02/2024 9:11 AM [employer] [facility] SODIUM 133(L) 135 - 146 mmol/L 11/02/2024 9:11 AM [employer] [facility] POTASSIUM 4.6 3.5 - 5.3 mmol/L 11/02/2024 9:11 AM [employer] [facility] CHLORIDE 97(L) 98 - 110 mmol/L 11/02/2024 9:11 AM [employer] [facility] CARBON DIOXIDE 26 20 - 32 mmol/L 11/02/2024 9:11 AM [employer] [facility] CALCIUM 9.5 8.6 - 10.2 mg/dL 11/02/2024 9:11 AM [employer] [facility] PROTEIN, TOTAL 7.2 6.1 - 8.1 g/dL 11/02/2024 9:11 AM [employer] [facility] ALBUMIN 4.3 3.6 - 5.1 g/dL 11/02/2024 9:11 AM [employer] [facility] GLOBULIN 2.9 1.9 - 3.7 g/dL (calc) 11/02/2024 9:11 AM EDT [employer] [facility] ALBUMIN/GLOBULI N RATIO 1.5 1.0 - 2.5 (calc) 11/02/2024 9:11 AM EDT [employer] [facility] BILIRUBIN, TOTAL 0.4 0.2 - 1.2 mg/dL 11/02/2024 9:11 AM EDT [employer] [facility] ALKALINE PHOSPHATASE 59 31 - 125 U/L 11/02/2024 9:11 AM EDT [employer] [facility] AST 10 10 - 30 U/L 11/02/2024 9:11 AM EDT [employer] [facility] ALT 13 6 - 29 U/L 11/02/2024 9:11 AM EDT [employer] [facility] Blood Blood / Unknown 11/01/2024 1 :14 PM EDT 11/02/2024 2:17 AM EDT Narrative [employer] [facility] - 11/02/2024 9:15 AM EDT FASTING:YES . Fasting reference interval . For someone without known diabetes, a glucose value >125 mg/dL indicates that they may have diabetes and this should be confirmed with a follow-up test. . Not Reported: BUN and Creatinine are within reference range. . us Magdy Riley PA-C LAB - BLOOD DRAW Final Result TIME PLUS Q [address] [address], [employer] [address] [address] from Last 3 Months Insurance [place] MEDICAID ticketea [facility] Member Subscriber Plan / Payer (Ef fective 2024-Present) Name:Jenna Osullivan Relation to Subscriber:Self Name:Jenna Osullivan Payer ID:[id number] Type:Indemnimartha Address: [facility] [address] [place] [address]
[2024-11-11 14:11] LABS: Alanine Aminotransferase 24 U/L (0-31); Albumin Level 4.3 g/dL (3.5-5.0); Alkaline Phosphatase 61 U/L (39-117); Anion Gap 11 (12-20); Aspartate Amino Transferase 13 U/L (5-31); Blood Urea Nitrogen 22 mg/dL (9-16); Calcium 9.8 mg/dL (8.4-10.2); Carbon Dioxide 27 mmol/L (22-29); Chloride 100 mmol/L (96-108); Estimated Glomerular Filt Rate > 60; Potassium 4.4 mmol/L (3.3-5.1); Sodium 134 mmol/L (135-145); Total Protein 7.3 g/dL (6.5-8.0)
== END 2024-11-11 11:26 | disposition home or self-care (01) ==
LOC: HO.10HDL 11:25
PROVIDERS: Visit Provider Internal Medicine
DX: E10.65 Type 1 diabetes mellitus with hyperglycemia (principal); E10.311 Type 1 diabetes mellitus with unspecified diabetic retinopathy with macular edema; R63.4 Abnormal weight loss
CPT/HCPCS: 36415; 80053; 82043; 82570; 83036; 84443; 86341

== ENCOUNTER 2024-11-19 10:52 | Outpatient (AMB) | payer OTHER, SELFPAY ==
[2024-11-19 10:54] VITALS: BP 90/62; PULSE 86; O2SAT 100; BMI 17.1
--- NOTE | 2024-11-19 10:54 | MHC.OFFVIS ---
Vital Signs 11/19/24 10:54 Height 5 ft 4.57 in Weight 101 lb 6.602 oz BMI 17.1 BP 90/62 Blood Pressure Location Lt brachial Position Sitting Pulse 86 Pulse Source Pulse Oximeter Pulse Oximetry (%) 100 Oxygen Delivery Method Room Air Intake Visit Reasons: Newly diagnosed diabetes Intake Note: New patient present today for Diabetes Mellitus, newly diagnosed. 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 Initially diagnosed with T1DM in 04/2024 when presented with hyperglycemia . Was initially started on treatment with metformin. Current regimen: metformin ?? Checks sugars 2-3 times per day. Unfortunately pt did not bring glucometer, sensor or logbook to visit Most recent A1C: 12.7, 11/11/2024 Family history of autoimmunity in paternal grandmother had diabetes Has eyes checked yearly, last eye exam 05/2024 , no retinopathy. Has neuropathy, ,not sees podiatry. Denies nephropathy,Not on ALLIE/ARB. UAC [] measured on []. Has HLD,Not on statin. Last LDL [] measured on []. Denies history of CAD. Not Had diabetes education. Diet/Carb counting: No Denies prior episodes of DKA. Has poldypsia . lost 3 lbs Nl menses . Not looking to get . Labs: [facility] Medical History (Updated 11/19/24 @ 11:00 by Wing Root MD) Uncontrolled type 1 diabetes mellitus with hyperglycemia, with long-term current use of insulin Surgical History (Updated 11/19/24 @ 11:01 by MAXX Mancia) H/O eye surgery Family History (Updated 11/19/24 @ 11:02 by MAXX Mancia) Mother Stroke Father Asthma Social History Alcohol intake: current Alcohol intake frequency: does not drink Patient Tobacco Use Status: Never used Tobacco Physical Exam Vital Signs: Last Vital Signs Pulse 86 11/19/24 10:54 BP 90/62 11/19/24 10:54 Pulse Ox 100 11/19/24 10:54 Oxygen Delivery Method Room Air 11/19/24 10:54 BMI result Body Mass Index 17.1 Absence of Cushingoid features. Absence of acromegalic features. Neck exam reveals nl size thyroid about 15 gms. No thyroid nodules palpable. No carotid bruits present. Lungs CTA. Heart S1 S2, Reg R/R. No M/R/ G. Skin exam reveals absence of vitiligo or acanthosis nigricans. Abdominal exam reveals Soft NT/ND with NA BS. No organomegaly present. Neck Other: . Extrem Other: Visual exam of foot performed. No ulcerations or open lesions. No onchomycosis, no callouses.Pulses 2 + distally Sensation intact to monofilament exam. Vibratory sensation sensed is intact with 128 Hz tuning fork Results Reviewed Results Reviewed: Laboratory Last Values Glucose (Clinic) 337 mg/dL (60-115) H 11/19/24 11:04 Assessment & Plan Assessment & Plan (1) Uncontrolled type 1 diabetes mellitus with hyperglycemia, with long-term current use of insulin: Code(s): E10.65 - Type 1 diabetes mellitus with hyperglycemia Category: Medical Plan: This is a 34-year-old white female with newly diagnosed type 1 diabetes currently being treated metformin with poor glycemic control and no known microvascular or macrovascular complication Plan is to stop the metformin initiate insulin Lantus 10 units and 3 units of Humalog prior to each meal. Patient will be with the nurse educator today to learn insulin administration. We will also have patient meet with the oil sales and service rep. We will check lipid profile. We will discuss with patient the correlation of poor glycemic control to development and progression of complications and also discuss potential use of insulin pump in the future Plan Spoke with patient with bishnu sizing sponger Wisam ID # [id number]. CGM Teaching Patient at visit to insert Tai 3+ Instructed patient sensors water proof you can shower, or swim do not submerge sensor in water for over 30 minutes Is sensor falls off cannot put back in you need to replace sensor, customer service number given to patient for sensor replacement Sensor placed on the right upper arm Patient left visit with sensor in warmup. Reviewed how to interpret trend arrows Discussed lag time between finger stick and sensor data.? Instructed patient the importance of having blood glucometer for backup testing if needed Reviewed delay of CGM from fingersticks Reminded Pt that if symptoms do not match sensor still needs to check fingersticks. Insulin/Incretin?Mimetic?Education visit Patient Education: Patient was instructed and provided with demonstration of the following: Insulin action and Incretin Mimetics Medication storage How to set up medication pen/or syringe and vial Handwashing Insulin injection site rotation Site rotation Recognizing hypertrophy Testing blood glucose Removing and disposing needle from insulin pen Safe disposal of sharps Target blood sugar Signs/ symptoms/treatment of hypoglycemia/hyperglycemia Expiration of open insulin pen Patient verbalized understanding of education provided and was able to demonstrate proper use of inject into injection pillow Reviewed rule of 15s to treat glucose under 70 mg/dL All questions were answered and patient was advised to contact the office with any questions or concerns especially if she is experiencing frequent hypoglycemia. Orders: Orders Lipid Panel Today E10.65 - Type 1 diabetes mellitus with hyperglycemia Referrals Diabetes Education Referral E10.65 - Type 1 diabetes mellitus with hyperglycemia Nutrition/Dietitian Referral E10.65 - Type 1 diabetes mellitus with hyperglycemia Medications: New insulin glargine (Lantus Solostar U-100 Insulin) 10 units (0.1 mL) subcut QPM 15 mL 5RF Novolog FlexPen U-100 Insulin (insulin aspart U-100) 3 units (0.03 mL) subcut TID 15 mL 4RF NS pen needle, diabetic (Comfort EZ Pen [place]) As directed injects 4 X/day 100 ea 4RF Novolog FlexPen U-100 Insulin (insulin aspart U-100) 3 units (0.03 mL) subcut TID 15 mL 4RF NS pen needle, diabetic (Comfort EZ Pen [place]) As directed injects 4 X/day 100 ea 4RF blood-glucose sensor (FreeStyle Tai 3 Plus Sensor device) As directed change every 15 days 2 ea 4RF blood-glucose sensor (FreeStyle Tai 3 Plus Sensor device) As directed change every 15 days 2 ea 4RF insulin glargine (Lantus Solostar U-100 Insulin) 10 units (0.1 mL) subcut QPM 15 mL 5RF Patient Instructions: CGM provides information on blood glucose control throughout the day, including hyperglycemia and hypoglycemia. ? Continue to monitor blood glucose as instructed. Follow nutrition guidelines provided. Report any discomfort promptly to health care provider. ?Stay well-hydrated. You can bathe ,shower, swim and exerce while wearing the glucose sensor. Do not submerge glucose sensor in water for more than 30 minutes. Remove sensor for MRI or CAT scan. Avoid Xray machine in airports - remove sensor or request wand Coding Level of Care Code New Pt Level 5 (57109) Diagnoses Uncontrolled type 1 diabetes mellitus with hyperglycemia, with long-term current use of insulin E10.65 Time Spent (min) 60
[2024-11-19 11:08] LABS: Glucose, Whole Blood 337 mg/dL (60-115)
--- OUTSIDE RECORDS SUMMARY | 2024-11-19 12:15 | XMS_ITS | Clinical Summary ---
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 60 Tablet 2 11/05/2024 Active Encounters Date Type Department Care Team Description 10/31/2024 5:00 PM EDT Office Visit [address] [phone] Child, SURENDRA Curran from Last 3 Months [...] 10/31/2024 4:20 PM EDT Plan of Treatment Upcoming Encounters Date Type Department Care Team (Late st Contact Info) Description 11/25/2024 3:00 PM EDT Office Visit [facility] [address] [place] [phone] Reymundo Rosas, PharmD [address] [place] [address] [place] [address] Health Maintenance Due Date Last Done Comments [...] Drug Screen 02/21/2024 Depression Annual Screen 02/21/2024 [id number] ( season) 2024 Imm-Influenza (#1) 2024 Hemoglobin A1c [...] to underlying condition with hyperglycemia, unspecified whether terminal block assembler insulin use ([facility]) ASSAY OF C-PEPTIDE Routine 11/01/2024 1: 14 PM EDT Diabetes mellitus due to underlying condition with hyperglycemia, unspecified whether terminal block assembler insulin use ([facility]) GLUCOSE FASTING Routine 11/01/2024 1:14 PM EDT Diabetes mellitus due to underlying condition with hyperglycemia, unspecified whether terminal block assembler insulin use ([facility]) IRON PANEL W TOTAL IRON BINDING CAPACITY Routine 11/01/2024 1:14 PM EDT Diabetes mellitus due to underlying condition with hyperglycemia, unspecified whether group home insulin use ([facility]) ACUTE HEPATITIS PANEL W/RFLX Routine 11/01/2024 1:14 PM EDT Diabetes mellitus due to underlying condition with hyperglycemia, unspecified whether group home insulin use ([facility]) HEMOGLOBIN GLYCOSYLATED A1C Routine 11/01/2024 1:14 PM EDT Diabetes mellitus due to underlying condition with hyperglycemia, unspecified whether terminal block assembler insulin use ([facility]) LIPID PANEL Routine 11/01/2024 1:14 PM EDT Diabetes mellitus due to underlying condition with hyperglycemia, unspecified whether group home insulin use ([facility]) MICROALBUMIN/CREATININ E RATIO, URINE, RANDOM Routine 11/01/2024 1:14 PM EDT Diabetes mellitus due to underlying condition with hyperglycemia, unspecified whether terminal block assembler insulin use ([facility]) C TRACHOMATIS/N GONORRHOEAE RNA,TMA Routine 11/01/2024 1:14 PM EDT Diabetes mellitus due to underlying condition with hyperglycemia, unspecified whether group home insulin use ([facility]) RPR (MONITOR) W/REFL TITER Routine 11/01/2024 1:14 PM EDT Diabetes mellitus due to underlying condition with hyperglycemia, unspecified whether terminal block assembler insulin use ([facility]) HIV 1/2 AG & AB W/RFLX (4TH GEN) Routine 11/01/2024 1:14 PM EDT Diabetes mellitus due to underlying condition with hyperglycemia, unspecified whether group home insulin use ([facility]) TSH W/RFLX FREE T4 Routine 11/01/2024 1: 14 PM EDT Diabetes mellitus due to underlying condition with hyperglycemia, unspecified whether group home insulin use ([facility]) BLOOD COUNT COMPLETE AUTOMATED Routine 11/01/2024 1:14 PM EDT Diabetes mellitus due to underlying condition with hyperglycemia, unspecified whether group home insulin use ([facility]) COMPREHENSIVE METABOLIC PANEL Routine 11/01/2024 1:14 PM EDT Diabetes mellitus due to underlying condition with hyperglycemia, unspecified whether terminal block assembler insulin use ([facility]) from Last 3 Months Results * (ABNORMAL) DIABETES TYPE 1 AUTOANTIBODY PANEL Routine (11/01/2024 1:14 PM EDT) GLUTAMIC ACID DECARBOXYLASE 65 AB >250(H) <5 IU/mL 11/09/2024 5:47 AM EDT [facility] INSULIN AUTOANTIBODY <0.4 <0.4 U/mL 11/09/2024 5:47 AM EDT [facility] ZINC TRANSPORTER 8 (ZNT8) ANTIBODY <10 <15 U/mL 11/09/2024 5:47 AM EDT [facility] IA-2 ANTIBODY <5.4 <5.4 U/mL 11/09/2024 5:47 AM EDT [facility] 11/01/2024 1:14 PM EDT 11/02/2024 2:10 AM EDT Located Within [facility] [place] - 11/09/2024 5:50 AM EDT FASTING:YES . This test was performed using the GAD65 JENS method which is standardized against the International reference preparation 97/550. FASTING:YES FASTING:YES . Clinician Resources: . Test Guidance Autoantibodies and Type 1 Diabetes (T1D) For additional information, please refer to https://www.DSC [employer]ad[employer].com/healthcare-professionals/cl inical-educationcenter/faq/pxo999 (This link is being provided for information/educational purposes only.) . Medical Guidelines and References 2022 Indian Diabetes Association Screening Recommendations (1) 2.5 Screening [...] should be considered. B . Patient Resources Indian Diabetes Association: Understanding Type 1 Diabetes https://diabetes.org/about-diabetes/type-1 Indian Diabetes Association: Your Journey With Type 1 Diabetes https://diabetes.org/exinhy-xfwo-fdcxzwib/type-1 JDRF: T1D Education & Awareness https://www.jdrf.org/o1z-mxtflwbon/p3jjnyql/ TrialNet: Type 1 Diabetes Research Network https://www.trialnet.org/ . 1. Cris Guzmán, Pam Lee, Alethea Mars, Aura Erazo, Morena Montoya, Gasper George, Antonio Macias, Ada Griffin, Claudette Martin, George Ozuna, Mark Mitchell, Mello Zheng, Jabier Tong, Zaida Arriaza, Janette Rabago, Karen Allison, Richard Bellamy, Barbara العلي, Wing Rangel, Wing Castro, Indian Diabetes Association; Addendum. 2. Classification and Diagnosis of Diabetes: Standards of Care in Diabetes-2022. Diabetes Care 2022;46(Suppl. 1):S19-S40. Diabetes Care 21 October 2022; 46 9): 1715. [email or web address]/10.2337/lf97-[email or web address] FASTING:YES . This test was performed using [...] (T1D) For additional information, please refer to https://www.[employer].com/healthcare-professionals/cl inical-educationcenter/faq/ljr727 (This link is being provided for information/educational purposes only.) . Medical Guidelines and References 2022 Indian Diabetes Association Screening Recommendations (1) 2.5 Screening [...] should be considered. B . Patient Resources Indian Diabetes Association: Understanding Type 1 Diabetes https://diabetes.org/about-diabetes/type-1 Indian Diabetes Association: Your Journey With Type 1 Diabetes https://diabetes.org/dhfmxi-xgkd-pkzoxoku/type-1 JDRF: T1D Education & Awareness https://www.jdrf.org/p0e-ejggarrmw/h6uhjoct/ TrialNet: Type 1 Diabetes Research Network https://www.trialnet.org/ . 1. Cris Guzmán, Pam Lee, Alethea Mars, Aura Erazo, Morena Montoya, Gasper George, Antonio Macias, Ada Griffin, Claudette Martin, George Ozuna, Mark Mitchell, Mello Zheng, Jabier Tong, Zaida Arriaza, Janette Rabago, Karen Allison, Richard Bellamy, Barbara العلي, Wing Rangel, Wing Castro, Indian Diabetes Association; Addendum. 2. Classification and Diagnosis of Diabetes: Standards of Care in Diabetes-2022. Diabetes Care 2022;46(Suppl. 1):S19-S40. Diabetes Care 21 October 2022; 46 (9): 1715. [email or web address]://[email or web address] Magdy Riley PA-C LAB - BLOOD DRAW Final Result [facility] [employer] [facility] [place] [address] [place] [address] [facility] [address] [place] [address] * HIV 1/2 AG & AB W/RFLX (4TH GEN) Routine (11/01/2024 1:14 PM EDT) Pathologist [facility] HIV Screen Final HIV NEGATIVE 11/02/2024 6:51 AM EDT [facility] HIV AG/AB, 4TH GEN NON-REACTIVE NON-REACT MARY 11/02/2024 6:51 AM EDT [facility] Blood Blood / Unknown 11/01/2024 1 :14 PM EDT 11/02/2024 4:36 AM EDT Narrative [facility] - 11/02/2024 6:57 AM EDT FASTING:YES HIV-1 antigen and HIV-1/HIV-2 antibodies were not detected. There is no laboratory evidence of HIV infection. [facility] LAB - BLOOD DRAW Final Result Performing Organization Address [facility]/ZIP Co de Phone Number [facility] [address] [address], [facility] [address] [address] * CHLAMYDIA/NEISSERIA GONORRHOEAE RNA, TMA, UROGENITAL Urine Urine Routine (11/01/2024 1:14 PM EDT) Pathologist [facility] CHLAMYDIA TRACHOMATIS RNA, TMA NOT DETECTED NOT DETECTED 11/02/2024 5:43 PM EDT [facility] NEISSERIA GONORRHOEAE RNA, TMA NOT DETECTED NOT DETECTED 11/02/2024 5:43 PM EDT [facility] Urine Urine specimen / Unknown 11/01/2024 1:14 PM EDT 11/02/2024 9:29 AM EDT Narrative [facility] - 11/02/2024 5:46 PM EDT FASTING:YES The analytical performance characteristics of this assay, when used to test SurePath(TM) specimens have been determined by [employer]. The modifications have not been cleared or approved by the FDA. This assay has been validated pursuant to the CLIA regulations and is used for clinical purposes. . For additional information, please refer to https://education.Anda.[employer]/faq/XVZ067 (This link is being provided for information/ educational purposes only.) . [facility] LAB BODY FLUIDS AND STOOLS AM BULATORY Final Result Performing Organization Address [facility] Co de Phone Number [facility] [address] [address], [facility] [address] [address] * (ABNORMAL) GLUCOSE FASTING Routine (11/01/2024 1:14 PM EDT) GLUCOSE, FASTING (P) 365(H) 65 - 99 mg/dL 11/02/2024 4:16 AM EDT [facility] 11/01/2024 1:14 PM EDT 11/02/2024 2:31 AM EDT [facility] - 11/02/2024 4:22 AM EDT FASTING:YES . Fasting reference interval . For someone without known diabetes, a glucose value >125 mg/dL indicates that they may have diabetes and this should be confirmed with a follow-up test. . us Magdy Riley PA-C LAB - BLOOD DRAW Final Result Performing Organization Address [facility] de Phone Number [facility] [address] [address], [facility] [address] [address] * TSH W/RFLX FREE T4 Routine (11/01/2024 1:14 PM EDT) TSH W/REFLEX TO FT4 3.61 mIU/L 11/02/2024 6:43 AM EDT [facility] Blood Blood / Unknown 11/01/2024 1 :14 PM EDT 11/02/2024 4:35 AM EDT [facility] - 11/02/2024 6:57 AM EDT FASTING:YES Reference Range . > or = 20 Years 0.40-4.50 . Ranges First trimester 0.26-2.66 Second trimester 0.55-2.73 Third trimester 0.43-2.91 us Magdy Riley PA-C LAB - BLOOD DRAW Final Result Performing Organization Address [facility]/ZIP Co de Phone Number [facility] [address] [address], [facility] [address] [address] * ACUTE HEPATITIS PANEL W/RFLX Routine (11/01/2024 1:14 PM EDT) HEPATITIS A IGM ANTIBODY NON-REACT MARY NON-REACT MARY 11/02/2024 6:52 AM EDT [facility] HEPATITIS B SURFACE ANTIGEN NON-REACT MARY NON-REACT MARY 11/02/2024 6:51 AM EDT [facility] HEPATITIS B CORE IGM ANTIBODY NON-REACT MARY NON-REACT MARY 11/02/2024 6:52 AM EDT [facility] HEPATITIS C ANTIBODY NON-REACT MARY NON-REACT MARY 11/02/2024 6:52 AM EDT [facility] Blood Blood / Unknown 11/01/2024 1 :14 PM EDT 11/02/2024 4:35 AM EDT Narrative [facility] - 11/02/2024 6:57 AM EDT FASTING:YES . HCV antibody was non-reactive. There is no laboratory evidence of HCV infection. . In most cases, no further action is required. However, if recent HCV exposure is suspected, a test for HCV RNA (test code 21058) is suggested. . For additional information please refer to http://education.AdGrok/faq/QRO69n1 (This link is being provided for informational/ educational purposes only.) . . For additional information, please refer to http://Chicory.Anda.[employer]/faq/BMX431 (This link is being provided for informational/ educational purposes only.) . Magdy Riley PA-C LAB - BLOOD DRAW Final Result [facility] [address] [address], [facility] [address] [address] * RPR (MONITOR) W/REFL TITER Routine (11/01/2024 1:14 PM EDT) Pathologist [facility] RPR (MONITOR) W/REFL TITER NON-REACT MARY NON-REACT MARY 11/05/2024 10:53 AM EDT [facility] Blood Blood / Unknown 11/01/2024 1 :14 PM EDT 11/02/2024 2:10 AM EDT [facility] - 11/05/2024 10:57 AM EDT FASTING:YES us Magdy FERNÁNDEZ-C LAB - BLOOD DRAW Final Result Performing Organization Address [facility]/ZIP Co de Phone Number [facility] [address] [place] [address], [facility] [address] [address] * MICROALBUMIN/CREATININE RATIO, URINE, RANDOM Urine Routine (11/01/2024 1:14 PM EDT) CREATININE, RANDOM URINE 108 20 - 275 mg/dL 11/02/2024 6:26 PM EDT [facility] MICROALBUMIN 2.8 mg/dL 11/02/2024 6:26 PM EDT [facility] MICROALBUMIN/CRE ATININE RATIO, RANDOM URINE 26 <30 mg/g creat 11/02/2024 6:26 PM EDT [facility] Urine Urine specimen / Unknown 11/01/2024 1:14 PM EDT 11/02/2024 1:51 AM EDT [facility] - 11/02/2024 6:45 PM EDT FASTING:YES Reference [...] be within a diagnostic category. us Magdy FERNÁNDEZ-C LAB URINE AMBULATORY Final Re sult Performing Organization Address [facility]/ZIP Co de Phone Number [facility] [address] [address], [facility] [address] [address] * IRON PANEL W TOTAL IRON BINDING CAPACITY Routine (11/01/2024 1:14 PM EDT) IRON, TOTAL 128 40 - 190 mcg/dL 11/02/2024 9:11 AM EDT [facility] IRON BINDING CAPACITY 392 250 - 450 mcg/dL (calc) 11/02/2024 9:11 AM EDT [facility] % SATURATION 33 16 - 45 % (calc) 11/02/2024 9:11 AM EDT [facility] Blood Blood / Unknown 11/01/2024 1 :14 PM EDT 11/02/2024 2:17 AM EDT Narrative [facility] - 11/02/2024 9:15 AM EDT FASTING:YES Magdy Riley PA-C LAB - BLOOD DRAW Final Result [facility] [address] [address], [facility] [address] [place] [address] * (ABNORMAL) BLOOD COUNT COMPLETE AUTOMATED Routine (11/01/2024 1:14 PM EDT) WHITE BLOOD CELL COUNT 5.9 3.8 - 10.8 Thousand/ uL 11/02/2024 3:08 AM [facility] RED BLOOD CELL COUNT 4.92 3.80 - 5.10 Million/u L 11/02/2024 3:08 AM [facility] HEMOGLOBIN 15.9(H) 11.7 - 15.5 g/dL 11/02/2024 3:08 AM [facility] HEMATOCRIT 47.4(H) 35.0 - 45.0 % 11/02/2024 3:08 AM [employer] [facility] MCV 96.3 80.0 - 100.0 fL 11/02/2024 3:08 AM [employer] [facility] MCH 32.3 27.0 - 33.0 pg 11/02/2024 3:08 AM [employer] [facility] MCHC 33.5 32.0 - 36.0 g/dL 11/02/2024 3:08 AM [employer] [facility] RDW 12.6 11.0 - 15.0 % 11/02/2024 3:08 AM [employer] [facility] PLATELET COUNT 233 140 - 400 Thousand/ uL 11/02/2024 3:08 AM EDT [facility] MPV 10.9 7.5 - 12.5 fL 11/02/2024 3:08 AM EDT [employer] Blood Blood / Unknown 11/01/2024 1 :14 PM EDT 11/02/2024 2:57 AM EDT Narrative [facility] - 11/02/2024 3:08 AM EDT FASTING:YES For adults, a slight decrease in the calculated MCHC value (in the range of 30 to 32 g/dL) is most likely not clinically significant; however, it should be interpreted with caution in correlation with other red cell parameters and the patient's clinical condition. us Magdy Riley PA-C LAB - BLOOD DRAW Final Result Performing Organization Address [facility] Co de Phone Number [facility] [address] [address], [employer] [address] [address] * ASSAY OF C-PEPTIDE Routine (11/01/2024 1:14 PM EDT) C-PEPTIDE 0.89 0.80 - 3.85 ng/mL 11/02/2024 6:35 AM EDT [facility] 11/01/2024 1:1 4 PM EDT 11/02/2024 4:35 AM EDT Narrative [facility] - 11/02/2024 6:57 AM EDT FASTING:YES Magdy Riley PA-C LAB - BLOOD DRAW Final Result Performing Organization Address City/[facility] Co de Phone Number [facility] [address] [address], [employer] [address] [address] * (ABNORMAL) HEMOGLOBIN GLYCOSYLATED A1C Routine (11/01/2024 1:14 PM EDT) HEMOGLOBIN A1C 12.3(H) <5.7 % 11/02/2024 6:09 AM EDT [employer] Blood Blood / Unknown 11/01/2024 1 :14 PM EDT 11/02/2024 2:57 AM EDT Narrative [facility] - 11/02/2024 6:17 AM EDT FASTING:YES For [...] PA-C LAB - BLOOD DRAW Final Result [facility] [address] [place] [address], [facility] [address] [address] * (ABNORMAL) LIPID PANEL Routine (11/01/2024 1:14 PM EDT) CHOLESTEROL, TOTAL 272(H) <200 mg/dL 11/02/2024 9:11 AM EDT [facility] HDL CHOLESTEROL 100 > OR = 50 mg/dL 11/02/2024 9:11 AM EDT [facility] TRIGLYCERIDES 157(H) <150 mg/dL 11/02/2024 9:11 AM EDT [facility] LDL-CHOLESTEROL 143(H) mg/dL (calc) 11/02/2024 9:11 AM EDT [facility] CHOL/HDLC RATIO 2.7 <5.0 (calc) 11/02/2024 9:11 AM EDT [facility] NON-HDL CHOLESTEROL 172(H) <130 mg/dL (calc) 11/02/2024 9:11 AM [employer] [facility] Blood Blood / Unknown 11/01/2024 1 :14 PM EDT 11/02/2024 2:17 AM EDT Narrative [facility] - 11/02/2024 9:15 AM EDT FASTING:YES Reference [...] LDL-C. Tye VALENCIA et al. URIEL. 2013;310(19): 8498-2896 (http://education.Vision Internet.[employer]/faq/LYO172) For patients with diabetes plus 1 major ASCVD risk factor, treating to a non-HDL-C goal of <100 mg/dL (LDL-C of <70 mg/dL) is considered a therapeutic option. us Magdy Riley PA-C LAB - BLOOD DRAW Final Result [facility] [address] [address], [facility] [address] [address] * (ABNORMAL) COMPREHENSIVE METABOLIC PANEL Routine (11/01/2024 1:14 PM EDT) GLUCOSE 363(H) 65 - 99 mg/dL 11/02/2024 9:11 AM [employer] UREA NITROGEN (BUN) 18 7 - 25 mg/dL 11/02/2024 9:11 AM [employer] CREATININE (blood) 0.94 0.50 - 0.97 mg/dL 11/02/2024 9:11 AM [employer] [facility] EGFR 82 > OR = 60 mL/min/1. 73m2 11/02/2024 9:11 AM [employer] BUN/CREATININE RATIO SEE NOTE: 6 - 22 (calc) 11/02/2024 9:11 AM [employer] SODIUM 133(L) 135 - 146 mmol/L 11/02/2024 9:11 AM [employer] [facility] POTASSIUM 4.6 3.5 - 5.3 mmol/L 11/02/2024 9:11 AM [employer] CHLORIDE 97(L) 98 - 110 mmol/L 11/02/2024 9:11 AM [employer] [facility] CARBON DIOXIDE 26 20 - 32 mmol/L 11/02/2024 9:11 AM EDT [facility] CALCIUM 9.5 8.6 - 10.2 mg/dL 11/02/2024 9:11 AM EDT [facility] PROTEIN, TOTAL 7.2 6.1 - 8.1 g/dL 11/02/2024 9:11 AM EDT [facility] ALBUMIN 4.3 3.6 - 5.1 g/dL 11/02/2024 9:11 AM EDT [facility] GLOBULIN 2.9 1.9 - 3.7 g/dL (calc) 11/02/2024 9:11 AM EDT [facility] ALBUMIN/GLOBULI N RATIO 1.5 1.0 - 2.5 (calc) 11/02/2024 9:11 AM EDT [facility] BILIRUBIN, TOTAL 0.4 0.2 - 1.2 mg/dL 11/02/2024 9:11 AM EDT [facility] ALKALINE PHOSPHATASE 59 31 - 125 U/L 11/02/2024 9:11 AM EDT [facility] AST 10 10 - 30 U/L 11/02/2024 9:11 AM EDT [employer] ALT 13 6 - 29 U/L 11/02/2024 9:11 AM [employer] [facility] Blood Blood / Unknown 11/01/2024 1 :14 PM EDT 11/02/2024 2:17 AM EDT Narrative [facility] - 11/02/2024 9:15 AM EDT FASTING:YES . Fasting reference interval . For someone without known diabetes, a glucose value >125 mg/dL indicates that they may have diabetes and this should be confirmed with a follow-up test. . Not Reported: BUN and Creatinine are within reference range. . us Magdy Riley PA-C LAB - BLOOD DRAW Final Result [facility] [employer] [address] [address], [facility] [address] [place] [address] from Last 3 Months Insurance [place] [employer] [facility] Member Subscriber Plan / Payer (Ef fective 2024-Present) Name:Jenna Osullivan Relation to Subscriber:Self Name:Jenna Osullivan Payer ID:[id number] Type:Indemnity Address: [address] [address] [place] [address]
== END 2024-11-19 12:26 | disposition home or self-care (01) ==
LOC: HO.ENCR 10:52
PROVIDERS: PCP Internal Medicine; Visit Provider Internal Medicine Endocrinology, Diabetes & Metabolism
DX: E10.65 Type 1 diabetes mellitus with hyperglycemia (principal)
CPT/HCPCS: 99205

== ENCOUNTER → 2024-11-19 10:52 | Outpatient (BNVA) | payer OTHER, SELFPAY | PROVIDERS: PCP Internal Medicine; Visit Provider Internal Medicine Endocrinology, Diabetes & Metabolism | DX: E10.65 Type 1 diabetes mellitus with hyperglycemia (principal) | CPT/HCPCS: 82947; 99202 ==

== ENCOUNTER 2024-12-04 06:55 | Outpatient (AMB) | payer OTHER, SELFPAY ==
--- OUTSIDE RECORDS SUMMARY | 2024-12-04 06:58 | XMS_ITS | Clinical Summary ---
Author Organization [facility] Address [address] [place] [address] Care Team Providers Care Quarter Lining Smoother Name Role Phone Unavailable Primary Care Provider [...] to underlying condition with hyperglycemia, unspecified whether half-way insulin use Take 1 Tablet by mouth 2 (two) times daily with a meal. 60 Tablet 2 11/05/2024 Active Encounters Date Type Department Care Team Description 10/31/2024 5:00 PM EDT Office Visit [address] [phone] Child, SURENDRA Curran from Last 3 Months [...] Drug Screen 02/21/2024 Depression Annual Screen 02/21/2024 [id number] (1 - season) 2024 Imm-Influenza (#1) 2024 [...] to underlying condition with hyperglycemia, unspecified whether half-way insulin use ([facility]) ASSAY OF C-PEPTIDE Routine 11/01/2024 1: 14 PM EDT Diabetes mellitus due to underlying condition with hyperglycemia, unspecified whether predatory animal exterminator insulin use ([facility]) GLUCOSE FASTING Routine 11/01/2024 1:14 PM EDT Diabetes mellitus due to underlying condition with hyperglycemia, unspecified whether half-way insulin use ([facility]) IRON PANEL W TOTAL IRON BINDING CAPACITY Routine 11/01/2024 1:14 PM EDT Diabetes mellitus due to underlying condition with hyperglycemia, unspecified whether predatory animal exterminator insulin use ([facility]) ACUTE HEPATITIS PANEL W/RFLX Routine 11/01/2024 1:14 PM EDT Diabetes mellitus due to underlying condition with hyperglycemia, unspecified whether half-way insulin use ([facility]) HEMOGLOBIN GLYCOSYLATED A1C Routine 11/01/2024 1:14 PM EDT Diabetes mellitus due to underlying condition with hyperglycemia, unspecified whether half-way insulin use ([facility]) LIPID PANEL Routine 11/01/2024 1:14 PM EDT Diabetes mellitus due to underlying condition with hyperglycemia, unspecified whether half-way insulin use ([facility]) MICROALBUMIN/CREATININ E RATIO, URINE, RANDOM Routine 11/01/2024 1:14 PM EDT Diabetes mellitus due to underlying condition with hyperglycemia, unspecified whether half-way insulin use ([facility]) C TRACHOMATIS/N GONORRHOEAE RNA,TMA Routine 11/01/2024 1:14 PM EDT Diabetes mellitus due to underlying condition with hyperglycemia, unspecified whether predatory animal exterminator insulin use ([facility]) RPR (MONITOR) W/REFL TITER Routine 11/01/2024 1:14 PM EDT Diabetes mellitus due to underlying condition with hyperglycemia, unspecified whether predatory animal exterminator insulin use ([facility]) HIV 1/2 AG & AB W/RFLX (4TH GEN) Routine 11/01/2024 1:14 PM EDT Diabetes mellitus due to underlying condition with hyperglycemia, unspecified whether half-way insulin use ([facility]) TSH W/RFLX FREE T4 Routine 11/01/2024 1: 14 PM EDT Diabetes mellitus due to underlying condition with hyperglycemia, unspecified whether half-way insulin use ([facility]) BLOOD COUNT COMPLETE AUTOMATED Routine 11/01/2024 1:14 PM EDT Diabetes mellitus due to underlying condition with hyperglycemia, unspecified whether half-way insulin use ([facility]) COMPREHENSIVE METABOLIC PANEL Routine 11/01/2024 1:14 PM EDT Diabetes mellitus due to underlying condition with hyperglycemia, unspecified whether predatory animal exterminator insulin use ([facility]) from Last 3 Months Results * (ABNORMAL) DIABETES TYPE 1 AUTOANTIBODY PANEL Routine (11/01/2024 1:14 PM EDT) GLUTAMIC ACID DECARBOXYLASE 65 AB >250(H) <5 IU/mL 11/09/2024 5:47 AM EDT [facility] INSULIN AUTOANTIBODY <0.4 <0.4 U/mL 11/09/2024 5:47 AM EDT [facility] ZINC TRANSPORTER 8 (ZNT8) ANTIBODY <10 <15 U/mL 11/09/2024 5:47 AM EDT [facility] IA-2 ANTIBODY <5.4 <5.4 U/mL 11/09/2024 5:47 AM EDT [facility] 11/01/2024 1:14 PM EDT 11/02/2024 2:10 AM EDT [facility] 11/09/2024 5:50 AM EDT FASTING:YES . This test was performed using the GAD65 JENS method which is standardized against the International reference preparation 97/550. FASTING:YES FASTING:YES . Clinician Resources: . Test Guidance Autoantibodies and Type 1 Diabetes (T1D) For additional information, please refer to https://www.SCIenergy/healthcare-professionals/cl inical-educationcenter/faq/sjo995 (This link is being provided for information/educational purposes only.) . Medical Guidelines and References 2022 [place] [employer] Screening Recommendations (1) 2.5 Screening [...] should be considered. B . Patient Resources [place] Diabetes [employer]: Understanding Type 1 Diabetes https://diabetes.org/about-diabetes/type-1 [place] Diabetes [employer]: Your Journey With Type 1 Diabetes https://diabetes.org/zosogw-wvaq-qecwqomq/type-1 JDRF: T1D Education & Awareness https://www.jdrf.org/m1s-scbwqrrvg/a0jysdes/ TrialNet: Type 1 Diabetes Research Network https://www.trialnet.org/ . 1. Pam Hines, Alethea Mars, Aura Erazo, Morena Montoya, Gasper George, Antonio Macias, Ada Griffin, Claudette Martin, George Ozuna, Mark Mitchell, Mello Zheng, Jabier Tong, Zaida Arriaza, Janette Rabago, Karen Allison, Richard Bellamy, Barbara العلي, Wing Rangel, Wing Castro, [employer] Diabetes Association; Addendum. 2. Classification and Diagnosis of Diabetes: Standards of Care in Diabetes-2022. Diabetes Care 2022;46(Suppl. 1):S19-S40. Diabetes Care 21 October 2022; 46 9): 1715. [email or web address]-[email or web address] FASTING:YES . This test was performed using [...] (T1D) For additional information, please refer to https://www.SCIenergy/healthcare-professionals/cl inical-educationcenter/faq/gia481 (This link is being provided for information/educational purposes only.) . Medical Guidelines and References 2022 [employer] Diabetes [employer] Screening Recommendations (1) 2.5 Screening [...] should be considered. B . Patient Resources [employer] Diabetes [employer]: Understanding Type 1 Diabetes https://diabetes.org/about-diabetes/type-1 [employer] Diabetes [employer]: Your Journey With Type 1 Diabetes https://diabetes.org/zvhxrt-hwpm-zwsknyse/type-1 JDRF: T1D Education & Awareness https://www.jdrf.org/l0s-triqssvgh/r6ruzxpq/ TrialNet: Type 1 Diabetes Research Network https://www.trialnet.org/ . 1. Cris Guzmán, Pam Lee, Alethea Mars, Aura Erazo, Morena Montoya, Gasper George, Antonio Macias, Ada Griffin, Claudette Martin, George Ozuna, Mark Mitchell, Mello Zheng, Jabier Tong, Zaida Arriaza, Janette Rabago, Karen Allison, Richard Bellamy, Barbara العلي, Wing Rangel, Wing Castro, [employer] Diabetes Association; Addendum. 2. Classification and Diagnosis of Diabetes: Standards of Care in Diabetes-2022. Diabetes Care 2022;46(Suppl. 1):S19-S40. Diabetes Care 21 October 2022; 46 (9): 1715. [email or web address] Magdy Riley PA-C LAB - BLOOD DRAW Final Result [facility] [address] [address] [place] [address] [facility] [address] [place] [address] * HIV 1/2 AG & AB W/RFLX (4TH GEN) Routine (11/01/2024 1:14 PM EDT) [facility] Signature HIV Screen Final HIV NEGATIVE 11/02/2024 6:51 AM EDT [facility] HIV AG/AB, 4TH GEN NON-REACTIVE NON-REACT MARY 11/02/2024 6:51 AM EDT [facility] Blood Blood / Unknown 11/01/2024 1 :14 PM EDT 11/02/2024 4:36 AM EDT Narrative [facility] [employer] [facility] - 11/02/2024 6:57 AM EDT FASTING:YES HIV-1 antigen and HIV-1/HIV-2 antibodies were not detected. There is no laboratory evidence of HIV infection. Magdy Child PA-C LAB - BLOOD DRAW Final Result Performing Organization Address [facility] Co de Phone Number [facility] [address] [address], [facility] [address] [address] * CHLAMYDIA/NEISSERIA GONORRHOEAE RNA, TMA, UROGENITAL Urine Urine Routine (11/01/2024 1:14 PM EDT) CHLAMYDIA TRACHOMATIS RNA, TMA NOT DETECTED NOT DETECTED 11/02/2024 5:[address] NEISSERIA GONORRHOEAE RNA, TMA NOT DETECTED NOT DETECTED 11/02/2024 5:43 PM EDT [employer] Urine Urine specimen / Unknown 11/01/2024 1:14 PM EDT 11/02/2024 9:29 AM EDT Narrative [facility] - 11/02/2024 5:46 PM EDT FASTING:YES The analytical performance characteristics of this assay, when used to test SurePath(TM) specimens have been determined by [employer]. The modifications have not been cleared or approved by the FDA. This assay has been validated pursuant to the CLIA regulations and is used for clinical purposes. . For additional information, please refer to https://education.SCIenergy/faq/EIC843 (This link is being provided for information/ educational purposes only.) . Magdy Riley JOLENE-C LAB BODY FLUIDS AND STOOLS AM BULATORY Final Result Performing Organization Address [facility] Co de Phone Number [facility] [address] [address], [facility] [address] [address] * (ABNORMAL) GLUCOSE FASTING Routine (11/01/2024 1:14 PM EDT) GLUCOSE, FASTING (P) 365(H) 65 - 99 mg/dL 11/02/2024 4:16 AM EDT [employer] 11/01/2024 1:14 PM EDT 11/02/2024 2:31 AM EDT Narrative [facility] - 11/02/2024 4:22 AM EDT FASTING:YES . Fasting reference interval . For someone without known diabetes, a glucose value >125 mg/dL indicates that they may have diabetes and this should be confirmed with a follow-up test. . Magdy Riley PA-C LAB - BLOOD DRAW Final Result Performing Organization Address [facility] de Phone Number [facility] [address] [address], [facility] [address] [address] * TSH W/RFLX FREE T4 Routine (11/01/2024 1:14 PM EDT) TSH W/REFLEX TO FT4 3.61 mIU/L 11/02/2024 6:43 AM EDT [facility] Blood Blood / Unknown 11/01/2024 1 :14 PM EDT 11/02/2024 4:35 AM EDT Narrative [facility] - 11/02/2024 6:57 AM EDT FASTING:YES Reference Range . > or = 20 Years 0.40-4.50 . Ranges First trimester 0.26-2.66 Second trimester 0.55-2.73 Third trimester 0.43-2.91 Magdy Riley PA-C LAB - BLOOD DRAW Final Result Performing Organization Address [facility] de Phone Number [facility] [address] [address], [facility] [address] [address] * ACUTE HEPATITIS PANEL W/RFLX Routine (11/01/2024 1:14 PM EDT) HEPATITIS A IGM ANTIBODY NON-REACT MARY NON-REACT MARY 11/02/2024 6:52 AM EDT [facility] HEPATITIS B SURFACE ANTIGEN NON-REACT MARY NON-REACT MARY 11/02/2024 6:51 AM EDT [facility] HEPATITIS B CORE IGM ANTIBODY NON-REACT MARY NON-REACT MARY 11/02/2024 6:52 AM EDT [facility] HEPATITIS C ANTIBODY NON-REACT MARY NON-REACT MARY 11/02/2024 6:52 AM EDT [facility] Blood Blood / Unknown 11/01/2024 1 :14 PM EDT 11/02/2024 4:35 AM EDT Narrative [facility] [employer] - 11/02/2024 6:57 AM EDT FASTING:YES . HCV antibody was non-reactive. There is no laboratory evidence of HCV infection. . In most cases, no further action is required. However, if recent HCV exposure is suspected, a test for HCV RNA (test code 60074) is suggested. . For additional information please refer to http://[employer]rip[employer].SCIenergy/faq/LDD57l8 (This link is being provided for informational/ educational purposes only.) . . For additional information, please refer to http://[employer]rip[employer].SCIenergy/faq/WGA390 (This link is being provided for informational/ educational purposes only.) . us Curran [facility] JOLENEC LAB - BLOOD DRAW Final Result Performing Organization Address [facility] Co de Phone Number [facility] [address] [address], [employer] [address] [address] * RPR (MONITOR) W/REFL TITER Routine (11/01/2024 1:14 PM EDT) RPR (MONITOR) W/REFL TITER NON-REACT MARY NON-REACT MARY 11/05/2024 10:53 AM EDT [facility] Blood Blood / Unknown 11/01/2024 1:14 PM EDT 11/02/2024 2:10 AM EDT [facility] - 11/05/2024 10:57 AM EDT FASTING:YES Magdy [facility]-C LAB - BLOOD DRAW Final Result Performing Organization Address [facility] Co de Phone Number [facility] [address] [address], [employer] [address] [address] * MICROALBUMIN/CREATININE RATIO, URINE, RANDOM Urine Routine (11/01/2024 1:14 PM EDT) CREATININE, RANDOM URINE 108 20 - 275 mg/dL 11/02/2024 6:26 PM EDT [facility] MICROALBUMIN 2.8 mg/dL 11/02/2024 6:26 PM EDT [facility] MICROALBUMIN/CRE ATININE RATIO, RANDOM URINE 26 <30 mg/g creat 11/02/2024 6:26 PM EDT [facility] Urine Urine specimen / Unknown 11/01/2024 1:14 PM EDT 11/02/2024 1:51 AM EDT [facility] - 11/02/2024 6:45 PM EDT FASTING:YES Reference [...] patient to be within a diagnostic category. Magdy Riley PA-C LAB URINE AMBULATORY Final Re sult [facility] [address] [place] [address], [facility] [address] [address] * IRON PANEL W TOTAL IRON BINDING CAPACITY Routine (11/01/2024 1:14 PM EDT) IRON, TOTAL 128 40 - 190 mcg/dL 11/02/2024 9:11 AM EDT [facility] IRON BINDING CAPACITY 392 250 - 450 mcg/dL (calc) 11/02/2024 9:[address] [facility] % SATURATION 33 16 - 45 % (calc) 11/02/2024 9:11 AM EDT [facility] [place] [employer] Blood Blood / Unknown 11/01/2024 1 :14 PM EDT 11/02/2024 2:17 AM EDT [facility] - 11/02/2024 9:15 AM EDT FASTING:YES Magdy Riley PA-C LAB - BLOOD DRAW Final Result [facility] [address] [address], [facility] [address] [place] [address] * (ABNORMAL) BLOOD COUNT COMPLETE AUTOMATED Routine (11/01/2024 1:14 PM EDT) [facility] WHITE BLOOD CELL COUNT 5.9 3.8 - 10.8 Thousand/ uL 11/02/2024 3:[address] [facility] RED BLOOD CELL COUNT 4.92 3.80 - 5.10 Million/u L 11/02/2024 3:[address] [facility] HEMOGLOBIN 15.9(H) 11.7 - 15.5 g/dL 11/02/2024 3:08 AM EDT [employer] HEMATOCRIT 47.4(H) 35.0 - 45.0 % 11/02/2024 3:[address] [facility] MCV 96.3 80.0 - 100.0 fL 11/02/2024 3:[address] [facility] MCH 32.3 27.0 - 33.0 pg 11/02/2024 3:[address] [facility] MCHC 33.5 32.0 - 36.0 g/dL 11/02/2024 3:[address] [facility] RDW 12.6 11.0 - 15.0 % 11/02/2024 3:[address] [facility] PLATELET COUNT 233 140 - 400 Thousand/ uL 11/02/2024 3:[address] [facility] MPV 10.9 7.5 - 12.5 fL 11/02/2024 3:08 AM [employer] Blood Blood / Unknown 11/01/2024 1 :14 PM EDT 11/02/2024 2:57 AM EDT Narrative [facility] - 11/02/2024 3:08 AM EDT FASTING:YES For adults, a slight decrease in the calculated MCHC value (in the range of 30 to 32 g/dL) is most likely not clinically significant; however, it should be interpreted with caution in correlation with other red cell parameters and the patient's clinical condition. us Magdy Riley PA-C LAB - BLOOD DRAW Final Result Performing Organization Address [facility] Co de Phone Number [facility] [address] [place] [address], [employer] [place] [facility] [address] [place] [phone] * ASSAY OF C-PEPTIDE Routine (11/01/2024 1:14 PM EDT) C-PEPTIDE 0.89 0.80 - 3.85 ng/mL 11/02/2024 6:35 AM EDT [employer] 11/01/2024 1:14 PM EDT 11/02/2024 4:35 AM EDT Narrative [facility] - 11/02/2024 6:57 AM EDT FASTING:YES Magdy Riley PA-C LAB - BLOOD DRAW Final Result Performing Organization Address [facility] de Phone Number [facility] [address] [place] [address], [facility] [address] [place] [phone] * (ABNORMAL) HEMOGLOBIN GLYCOSYLATED A1C Routine (11/01/2024 1:14 PM EDT) HEMOGLOBIN A1C 12.3(H) <5.7 % 11/02/2024 6:09 AM EDT [employer] Blood Blood / Unknown 11/01/2024 1 :14 PM EDT 11/02/2024 2:57 AM EDT [facility] - 11/02/2024 6:17 AM EDT FASTING:YES For [...] of diabetes for children. . us Magdy FERNÁNDEZ-Loren LAB - BLOOD DRAW Final Result [facility] [address] [place] [address], [facility] [address] [place] [address] * (ABNORMAL) LIPID PANEL Routine (11/01/2024 1:14 PM EDT) [facility] CHOLESTEROL, TOTAL 272(H) <200 mg/dL 11/02/2024 9:[address] [facility] HDL CHOLESTEROL 100 > OR = 50 mg/dL 11/02/2024 9:11 AM EDT [facility] TRIGLYCERIDES 157(H) <150 mg/dL 11/02/2024 9:11 AM EDT [facility] LDL-CHOLESTEROL 143(H) mg/dL (calc) 11/02/2024 9:11 AM EDT [facility] CHOL/HDLC RATIO 2.7 <5.0 (calc) 11/02/2024 9:[address] [facility] NON-HDL CHOLESTEROL 172(H) <130 mg/dL (calc) 11/02/2024 9:[address] Blood Blood / Unknown 11/01/2024 1 :14 PM EDT 11/02/2024 2:17 AM EDT Narr[address] [facility] - 11/02/2024 9:15 AM EDT FASTING:YES Reference [...] LDL-C. Tye VALENCIA et al. URIEL. 2013;310(19): 6973-9123 (http://education.Medicalodges.Centro/faq/DYD408) For patients with diabetes plus 1 major ASCVD risk factor, treating to a non-HDL-C goal of <100 mg/dL (LDL-C of <70 mg/dL) is considered a therapeutic option. us Magdy FERNÁNDEZ-Loren LAB - BLOOD DRAW Final Result [facility] [address] [address], [facility] [address] [place] [address] * (ABNORMAL) COMPREHENSIVE METABOLIC PANEL Routine (11/01/2024 1:14 PM EDT) GLUCOSE 363(H) 65 - 99 mg/dL 11/02/2024 9:[address] [facility] UREA NITROGEN (BUN) 18 7 - 25 mg/dL 11/02/2024 9:[address] [employer] [facility] CREATININE (blood) 0.94 0.50 - 0.97 mg/dL 11/02/2024 9:[address] [employer] [facility] EGFR 82 > OR = 60 mL/min/1. 73m2 11/02/2024 9:[address] [facility] BUN/CREATININE RATIO SEE NOTE: 6 - 22 (calc) 11/02/2024 9:[address] [facility] SODIUM 133(L) 135 - 146 mmol/L 11/02/2024 9:11 AM [employer] POTASSIUM 4.6 3.5 - 5.3 mmol/L 11/02/2024 9:11 AM [employer] CHLORIDE 97(L) 98 - 110 mmol/L 11/02/2024 9:[address] [employer] [facility] CARBON DIOXIDE 26 20 - 32 mmol/L 11/02/2024 9:[address] [employer] [address] [facility] CALCIUM 9.5 8.6 - 10.2 mg/dL 11/02/2024 9:11 AM [employer] PROTEIN, TOTAL 7.2 6.1 - 8.1 g/dL 11/02/2024 9:11 AM [employer] ALBUMIN 4.3 3.6 - 5.1 g/dL 11/02/2024 9:11 AM [employer] GLOBULIN 2.9 1.9 - 3.7 g/dL (calc) 11/02/2024 9:11 AM EDT [facility] ALBUMIN/GLOBULI N RATIO 1.5 1.0 - 2.5 (calc) 11/02/2024 9:11 AM EDT [facility] BILIRUBIN, TOTAL 0.4 0.2 - 1.2 mg/dL 11/02/2024 9:11 AM EDT [facility] ALKALINE PHOSPHATASE 59 31 - 125 U/L 11/02/2024 9:11 AM EDT [facility] AST 10 10 - 30 U/L 11/02/2024 9:11 AM EDT [facility] ALT 13 6 - 29 U/L 11/02/2024 9:11 AM EDT [facility] Blood Blood / Unknown 11/01/2024 1 :14 PM EDT 11/02/2024 2:17 AM EDT Narrative [facility] - 11/02/2024 9:15 AM EDT FASTING:YES . Fasting reference interval . For someone without known diabetes, a glucose value >125 mg/dL indicates that they may have diabetes and this should be confirmed with a follow-up test. . Not Reported: BUN and Creatinine are within reference range. . us Magdy Riley PA-C LAB - BLOOD DRAW Final Result [facility] [address] [address], [facility] [address] [place] [address] from Last 3 Months Insurance [employer] Member Subscriber Plan / Payer (Ef fective 2024-Present) Name:Jenna Osullivan Relation to Subscriber:Self Name:Jenna Osullivan Payer ID:[id number] Type:Indemnity Address: [facility] [address] [place] [address]
--- NOTE | 2024-12-04 07:00 | MHC.AMDMED ---
Intake Intake Visit Reasons: Newly diagnosed diabetes Utility Gelatin Maker Required: Yes Utility Gelatin Maker Language: [place] Utility Gelatin Maker Name: [id number] Accompanied by: Self / Same As Patient Allergies alcohol Allergy (Verified 11/19/24 11:00) Shortness of Breath HPI Comprehensive Diabetes Asmnt Most Recent Diabetes Results: Microalb/Creat Ratio, (<30) 60.3 ug/mg cr H 11/11/24 Creatinine, (0.5-1.4) 0.90 mg/dL 11/11/24 BUN, (9-16) 22 mg/dL H 11/11/24 Sodium, (135-145) 134 mmol/L L 11/11/24 Potassium, (3.3-5.1) 4.4 mmol/L 11/11/24 Chloride, (96-108) 100 mmol/L 11/11/24 Carbon Dioxide, (22-29) 27 mmol/L 11/11/24 Calcium, (8.4-10.2) 9.8 mg/dL Δ 11/11/24 AST, (5-31) 13 U/L 11/11/24 ALT, (0-31) 24 U/L 11/11/24 Total Protein, (6.5-8.0) 7.3 g/dL 11/11/24 Albumin, (3.5-5.0) 4.3 g/dL 11/11/24 [facility] Medical History (Updated 11/19/24 @ 11:00 by Wing Root MD) Uncontrolled type 1 diabetes mellitus with hyperglycemia, with long-term current use of insulin Surgical History (Updated 11/19/24 @ 11:01 by MAXX Mancia) H/O eye surgery Family History (Updated 11/19/24 @ 11:02 by MAXX Mancia) Mother Stroke Father Asthma Social History (Updated 11/19/24 @ 11:02 by MAXX Mancia) Alcohol intake: current Alcohol intake frequency: does not drink Patient Tobacco Use Status: Never used Tobacco Assessment & Plan Assessment & Plan (1) Uncontrolled type 1 diabetes mellitus with hyperglycemia, with long-term current use of insulin: Code(s): E10.65 - Type 1 diabetes mellitus with hyperglycemia Plan: Learning objectives: The patient was provided with verbal and written education on the following topics as outlined below. The patient met all learning objectives and was able to verbalize understanding and provide teach back of education topics discussed . The patient was provided with the opportunity to ask questions and all questions were answered. Patient Assessment Assess patient education level/literacy/barriers, Pt newly Dx of Type 1 daibetes Patient questions/concerns pt asked question about hypoglycemia, review info below: Recommended Pt increase Lantus to 12 unit, and Novolog 4 units Signs and symptoms of low blood sugar (happen quickly) Each person's reaction to low blood sugar is different. Learn your own signs and symptoms of when your blood sugar is low. Taking time to write these symptoms down may help you learn your own symptoms of when your blood sugar is low. From milder, more common indicators to most severe, signs and symptoms of low blood sugar include: Feeling shaky Being nervous or anxious Sweating, chills and clamminess Irritability or impatience Confusion Fast heartbeat Feeling lightheaded or dizzy Hunger Nausea Color draining from the skin (pallor) Feeling Sleepy Feeling weak or having no energy Blurred/impaired vision Tingling or numbness in the lips, tongue, or cheeks Headaches Coordination problems, clumsiness Hypoglycemia or blood glucose under 70 use the rule of 15's: If you have your blood glucose meter test your blood glucose, if you do not have your meter still follow below instruction: Keep quick-sugar foods with you at all times.? Take 15 grams of fast acting carbohydrates. Examples are 4 ounces of fruit juice or regular soda pop, 8 ounces fat-free milk, 1 tablespoon of table sugar, honey or corn syrup, jam, one miniature box of raisins, 7-8 gumdrops or Life Savers candy, 4 glucose tablets, and glucose gel.? Retest blood glucose in 15 minutes, if blood glucose is still under 80,repeat rule of 15's. If blood glucose is under 50, take 30 grams of fast acting carbohydrates If you are having hypoglycemia, or insulin reaction, more that a few times a week, call MD or agricultural extension educator F/U BG check What is Diabetes? Pathophysiology How the body produces and uses insulin Identify type of DM Risk factors Signs of Diabetes Brief overview of Diabetes Management Monitoring blood sugar Following a meal plan Regular exercise Maintaining a healthy weight Taking medication as needed Members of the care team (PCP, RN, MA, RD, CDE, english composition instructor) Blood glucose monitoring When/how often to test Target blood sugar ranges Introduction to Nutrition Importance of healthy diet in managing DM Diet is personalized to individual preference Review patient?s regular diet/food preferences Who prepares meals/does food shopping/ Dining out?/ Barriers? How diet effects glucose Eating 3 balanced meals a day with small, healthy snacks between meals Review food groups Carbohydrates: What is a carbohydrate/Which food/food groups are considered carbohydrates Effect of carbohydrates on blood glucose Portion sizes Reading food labels Basic carb counting (if applicable per nursing assessment) Plate method Meal planning Recommendations: Follow plate method, consistent carbs and read nutritional labels. Smart Goal: Use Rule of 15s to treat hypoglycemia Educational Materials: The patient was provided with the following written educational materials: Carb list an How to treat hypoglycemia Handouts in [place] Patient Response to instructions: Comprehension of Instructions: Fair Readiness to make changes: Contemplation How confident they feel about making changes: Positive Portions of this note were created using voice recognition software, please excuse any words or phrases that may have been misinterpreted. Patient Instructions: Increase Lantus to 12 units Increase Novolog to 4 units before meals Include regular daily activity. ADA recommends 30 minutes of exercise 5 days a week. Weight loss talk to PCP or Admin Dir before starting new plan. Test blood sugar as directed; Fasting and 2hpp largest meal. Watch trends in results. Utilize results and to assess how food, physical activity and medications affect blood sugar results. Bring glucometer or CGM to next visit. Be knowledgeable about diabetes medication, its action, side effects, efficacy, toxicity, prescribed dosage, appropriate timing and frequency of administration, effect of missed and delayed doses and instructions for storage, travel and safety. Problem solving techniques to monitor hypo/hyperglycemia episodes and treatments. Reduce risk reduction behaviors, smoking cessation, regular eye, foot and dental examinations. Coding Level of Care Code Est Pt Level 1 (25626) Diagnoses Uncontrolled type 1 diabetes mellitus with hyperglycemia, with long-term current use of insulin E10.65
== END 2024-12-04 07:51 | disposition home or self-care (01) ==
LOC: HO.ENCR 06:56
PROVIDERS: PCP Internal Medicine; Visit Provider Registered Nurse Diabetes Educator
DX: E10.65 Type 1 diabetes mellitus with hyperglycemia (principal)

== ENCOUNTER → 2024-12-04 06:55 | Outpatient (BNVA) | payer OTHER, SELFPAY | PROVIDERS: PCP Internal Medicine; Visit Provider Registered Nurse Diabetes Educator | DX: E10.65 Type 1 diabetes mellitus with hyperglycemia (principal); Z79.4 Long term (current) use of insulin | CPT/HCPCS: 99211 ==

== ENCOUNTER 2025-01-09 08:54 | Outpatient (AMB) | payer OTHER, SELFPAY ==
--- NOTE | 2025-01-09 08:58 | MHC.OFFVIS ---
Vital Signs 01/09/25 09:02 Height 5 ft 4.57 in Weight 99 lb 13.91 oz BMI 16.8 BP 98/64 Blood Pressure Location Rt brachial Position Sitting Pulse 86 Pulse Source Pulse Oximeter Pulse Oximetry (%) 99 Oxygen Delivery Method Room Air Intake Visit Reasons: Newly diagnosed diabetes Intake Note: Patient present today for Diabetes Mellitus follow up. Patient reports she stopped injecting insulin for a few days due to a breakup she had with her significant other, states she does have it at her house. Last Diabetic Eye exam: Last exam was on 05/2024 Last Podiatry Visit: Doesn't see Project Manager/Design Manager Random Glucose: 480 mg/dl @ 9:06 am 302 mg/d @ 10:20am Hgb A1C: 12.7% 11/11/2024 Urine Ketone: Negative Energy Efficiency Specialist Required: Yes Energy Efficiency Specialist Language: [place] Energy Efficiency Specialist Services: Energy Efficiency Specialist Offered & Declined Accompanied by: Self / Same As Patient Allergies alcohol Allergy (Verified 01/09/25 09:02) Shortness of Breath HPI Comments Details: 34 YO F with is seen in consultation for T1DM at the request of PCP. Initially diagnosed with T1DM in 04/2024 when presented with hyperglycemia . Was initially started on treatment with metformin. Current regimen: Lantus 12 units , Humalog 4 units TID metformin 500 mg BID ?? Tai download shows she is using the sensor 100% of the time. Average glucose is 201 with G mi of 8.1% and variability 29.5%. Target range is 39% with hyperglycemia 38% very hypoglycemic 23% no hypoglycemia. Pattern shows declining blood sugars overnight with increases post-lunch which are maintained throughout the day Most recent A1C: 12.7, 11/11/2024 Family history of autoimmunity in paternal grandmother had diabetes Has eyes checked yearly, last eye exam 05/2024 , no retinopathy. Has neuropathy, ,not sees podiatry. Denies nephropathy,Not on ALLIE/ARB. UAC [] measured on []. Has HLD,Not on statin. Last LDL [] measured on []. Denies history of CAD. Not Had diabetes education. Diet/Carb counting: No Infrequent hypos Denies prior episodes of DKA. Has poldypsia . lost 3 lbs Nl menses . Not looking to get . Presented today after not taking insulin for 2 days including basal insulin after breakup from boyfriend. [facility] Medical History (Updated 11/19/24 @ 11:00 by Wing Root MD) Uncontrolled type 1 diabetes mellitus with hyperglycemia, with long-term current use of insulin Surgical History H/O eye surgery Family History Mother Stroke Father Asthma Social History Alcohol intake: current Alcohol intake frequency: does not drink Patient Tobacco Use Status: Never used Tobacco Physical Exam Vital Signs: Last Vital Signs Pulse 86 01/09/25 09:02 BP 98/64 01/09/25 09:02 Pulse Ox 99 01/09/25 09:02 Oxygen Delivery Method Room Air 01/09/25 09:02 BMI result Body Mass Index 16.8 Absence of Cushingoid features. Absence of acromegalic features. Neck exam reveals nl size thyroid about 15 gms. No thyroid nodules palpable. No carotid bruits present. Lungs CTA. Heart S1 S2, Reg R/R. No M/R/ G. Skin exam reveals absence of vitiligo or acanthosis nigricans. Abdominal exam reveals Soft NT/ND with NA BS. No organomegaly present. Neck Other: . Extrem Other: Visual exam of foot performed. No ulcerations or open lesions. No onchomycosis, no callouses.Pulses 2 + distally Sensation intact to monofilament exam. Vibratory sensation sensed is intact with 128 Hz tuning fork Office Meds Humalog U-100 Insulin 100 unit/mL subcutaneous solution Performing Provider: Wing Root MD Performing Location: [facility] [place] Endocrinology Administered by: Cheryl Villa RN on 01/09/25 09:15 Dose Route Admin Location Dispensed Lot Number Expiration Date [facility] [place] Assistant Merchandiser 10 unit subcut Right lower abdomen 0.1 mL [id number] 01/31/25 0052-2129-91 [employer] Total Dispensed Waste 0.1 mL 0 % Comments: Discussed with Dr. Root. Patient is with elevated blood sugar, 480 and negative ketones. Patient given 4 cups of water and Dr. Root verbally ordered to give 10 units of insulin lispro. Patient is agreeable to plan. Patient advised she will need to stay one hour to recheck her glucose levels. Insulin lispro was drawn up in insulin syringe and verified visually dosage with Dr. Root. Patient tolerated injection well. Kalyani VILLANUEVA alerted to insulin being given at 9:15 with recheck in one hour per protocol. Blood sugar was rechecked at 10:20 and read 302. Results UR Ketone Dip UR Ketone Dip Negative Last Edit by MAXX Mancia on 01/09/25 09:36 Results Reviewed Results Reviewed: Laboratory Last Values Glucose (Clinic) 302 mg/dL (60-115) H 01/09/25 10:20 Ur Ketones (Stick) Negative 01/09/25 09:35 Assessment & Plan Assessment & Plan (1) Uncontrolled type 1 diabetes mellitus with hyperglycemia, with long-term current use of insulin: Code(s): E10.65 - Type 1 diabetes mellitus with hyperglycemia Category: Medical Plan: This is a 34-year-old white female with newly diagnosed type 1 diabetes currently being treated metformin with poor glycemic control and no known microvascular or macrovascular complication Plan is to increase Novolog pre lunch to 5 units and to 7 units if still hyperglycemic post- lunch Will meet with CDE also discuss potential use of insulin pump in the future. For the acute situation today, 10 units of Humalog insulin was given to the patient and we will dip the urine for ketones. Urine ketones were negative and repeat point of care was 302. The patient is going to meet with the software educator and then we will follow up here in about 10 weeks Orders: Orders AMB Ketone Urine Dipstick Today E10.65 - Type 1 diabetes mellitus with hyperglycemia AMB Insulin Lispro Injection Practice Supplied Today E10.65 - Type 1 diabetes mellitus with hyperglycemia Coding Diagnoses Uncontrolled type 1 diabetes mellitus with hyperglycemia, with long-term current use of insulin E10.65
[2025-01-09 09:02] VITALS: BP 98/64; PULSE 86; O2SAT 99; BMI 16.8
[2025-01-09 09:11] LABS: Glucose, Whole Blood 480 mg/dL (60-115)
[2025-01-09 10:24] LABS: Glucose, Whole Blood 302 mg/dL (60-115)
== END 2025-01-09 10:51 | disposition home or self-care (01) ==
LOC: HO.ENCR 08:54
PROVIDERS: PCP Internal Medicine; Visit Provider Internal Medicine Endocrinology, Diabetes & Metabolism
DX: E10.65 Type 1 diabetes mellitus with hyperglycemia (principal)

== ENCOUNTER 2025-01-09 08:54 | Outpatient (AMB) | payer OTHER, SELFPAY ==
--- NOTE | 2025-01-09 10:25 | MHC.AMDMED ---
Intake Intake Visit Reasons: 60 min, Carb counting Electro Optics Engineer Required: Yes Electro Optics Engineer Language: Citizen Of [place] Allergies alcohol Allergy (Verified 01/09/25 09:02) Shortness of Breath HPI Comprehensive Diabetes Asmnt Most Recent Diabetes Results: Microalb/Creat Ratio, (<30) 60.3 ug/mg cr H 11/11/24 Creatinine, (0.5-1.4) 0.90 mg/dL 11/11/24 BUN, (9-16) 22 mg/dL H 11/11/24 Sodium, (135-145) 134 mmol/L L 11/11/24 Potassium, (3.3-5.1) 4.4 mmol/L 11/11/24 Chloride, (96-108) 100 mmol/L 11/11/24 Carbon Dioxide, (22-29) 27 mmol/L 11/11/24 Calcium, (8.4-10.2) 9.8 mg/dL Δ 11/11/24 AST, (5-31) 13 U/L 11/11/24 ALT, (0-31) 24 U/L 11/11/24 Total Protein, (6.5-8.0) 7.3 g/dL 11/11/24 Albumin, (3.5-5.0) 4.3 g/dL 11/11/24 [facility] Medical History (Updated 11/19/24 @ 11:00 by Wing Root MD) Uncontrolled type 1 diabetes mellitus with hyperglycemia, with long-term current use of insulin Surgical History H/O eye surgery Family History Mother Stroke Father Asthma Social History Alcohol intake: current Alcohol intake frequency: does not drink Patient Tobacco Use Status: Never used Tobacco Assessment & Plan Assessment & Plan (1) Uncontrolled type 1 diabetes mellitus with hyperglycemia, with long-term current use of insulin: Code(s): E10.65 - Type 1 diabetes mellitus with hyperglycemia Plan: Personal Continuous Glucose Monitor: Patients CGM information reviewed, Pt uses Patient arrived at visit with provider today with glucose over 400 mg/dL, patient reports that she recently broke up with her significant other and had not taken Lantus for several days. She reports she did take NovoLog last night but was afraid to take Lantus at the same time. At today's visit I reviewed with patient action of Lantus and NovoLog. Instructed patient it is okay to take Lantus with NovoLog dose Explained to patient it is important that she use basal insulin every single day to avoid acute risk of DKA At today's visit patient stated at this time she is not interested in insulin pump therapy, or starting carb counting She is currently taking Lantus 10 units daily NovoLog increase to 4 units prior to meals at today's visit with Dr. Root Patient able to insert sensor independently at home without issue.? DIABETES PROBLEMS HOMECARE INSTRUCTIONS? for High Blood Sugar and When to Test for Ketones Hyperglycemia is the technical term for high blood glucose (blood sugar). High blood sugar happens when the body has too little insulin or when the body can't use insulin properly. What causes hyperglycemia? A number of things can cause hyperglycemia: If you have type 1, you may not have given yourself enough insulin. ? If you have type 2, your body may have enough insulin, but it is not as effective as it should be. You ate more than planned or exercised less than planned. You have stress from an illness, such as a cold or flu. You have other stress, such as family conflicts or school or dating problems. How to lower your blood sugar level. ? Take medications as directed by physician. ? Drink extra water or noncaffeinated, nonsugared drinks to prevented hydration. ? Exercise if you are not sick However, if your blood sugar is above 250 mg/dl, check your urine for ketones. If you have ketones, do not exercise Exercising when ketones are present may make your blood sugar level go even higher. You'll need to work with your doctor to find the safest way for you to lower your blood sugar level. Regularly check blood sugar or urine for sugar and acetone during illness. Diabetic ketoacidosis (DKA) Is serious condition that can lead to diabetic coma (passing out for a long time) or even . When your cells don't get the glucose they need for energy, your body begins to burn fat for energy, which produces ketones. Ketones are chemicals that the body creates when it breaks down fat to use for energy. The body does this when it doesn?t have enough insulin to use glucose, the body?s normal source of energy. When ketones build up in the blood, they make it more acidic. They are a warning sign that your diabetes is out of control or that you are getting sick. Symptoms of Diabetic Ketoacidosis (DKA) ? DKA usually develops slowly. But when vomiting occurs, this life-threatening condition can develop in a few hours. Early symptoms include the following: ? Thirst or a very dry mouth ? Frequent urination ? High blood glucose (blood sugar) levels ? High levels of ketones in the urine ? Then, other symptoms appear: ? Constantly feeling tired ? Dry or flushed skin ? Nausea, vomiting, or abdominal pain ? (Vomiting can be caused by many illnesses, not just ketoacidosis. If vomiting continues for more than 2 hours, contact your health care provider.) ? Difficulty breathing ? Fruity odor on breath ? A hard time paying attention, or confusion When should you test for ketones? It is advisable to check for ketones under the following conditions when: Your blood glucose is higher than 250mg/dl. Feeling nauseated, throwing up, or have pains in your abdominal region. Have a cold or flu. Have general body fatigue. Feel thirsty or have a very dry mouth. Have flushed skin. Have a fruity breath or a hard time breathing. You feel perplexed or in fog. How to Test Urine for Ketones You can detect ketones with a simple urine test using a test strip, similar to a blood testing strip. Ask your health care provider when and how you should test for ketones. Many experts advise to check your urine for ketones when your blood glucose is more than 250 mg/dl. When you are ill (when you have a cold or the flu, for example), check for ketones every 4 to 6 hours. And check every 4 to 6 hours when your blood sugar is more than 250 mg/dl. Also, check for ketones when you have any symptoms of DKA. How to lower your blood sugar level. ? Take medications as directed by physician. ? Drink extra water or noncaffeinated, nonsugared drinks to prevented hydration. ? Exercise if you are not sick However, if your blood sugar is above 250 mg/dl, check your urine for ketones. If you have ketones, do not exercise Exercising when ketones are present may make your blood sugar level go even higher. You'll need to work with your doctor to find the safest way for you to lower your blood sugar level. Regularly check blood sugar or urine for sugar and acetone during illness Copy of instructions given in [place] Patient will follow-up with senior health educator in 1 month for glucose review Patient Instructions: Follow-up with senior health educator in 1 month Coding Level of Care Code Est Pt Level 1 (88220) Diagnoses Uncontrolled type 1 diabetes mellitus with hyperglycemia, with long-term current use of insulin E10.65 Results UR Ketone Dip UR Ketone Dip Negative Last Edit by MAXX Mancia on 01/09/25 09:36
== END 2025-01-09 10:51 | disposition home or self-care (01) ==
LOC: HO.ENCR 08:54
PROVIDERS: PCP Internal Medicine; Visit Provider Registered Nurse Diabetes Educator
DX: E10.65 Type 1 diabetes mellitus with hyperglycemia (principal)

== ENCOUNTER → 2025-01-09 08:54 | Outpatient (BNVA) | payer OTHER, SELFPAY | PROVIDERS: PCP Internal Medicine; Visit Provider Internal Medicine Endocrinology, Diabetes & Metabolism | DX: E10.65 Type 1 diabetes mellitus with hyperglycemia (principal); Z79.4 Long term (current) use of insulin | CPT/HCPCS: 81002; 82947; 96372; 99211; 99212; J1815 ==